=== PATIENT | male | born 1950 | race Caucasian/White ===

== ENCOUNTER 2019-07-12 06:19 | Emergency (ER) | payer MEDICARE ==
[~2019-07-12] VITALS: Ht 180.3 cm; Wt 145.1 kg
[2019-07-12 06:53] VITALS: BP 173/98
[2019-07-12] MEDS ORDERED: MORPHINE SULFATE 4 MG/ML VIAL. IV ONE (07:00)
--- NOTE | 2019-07-12 07:02 | PHYS DOC ---
Past Medical History Past Medical History: Arthritis, High Cholesterol, Hypertension Past Surgical History: No Surgical History Alcohol Use: Occasionally Drug Use: None Adult General Chief Complaint Chief Complaint: LOWER EXT PAIN HPI HPI Patient is a 69 year old male with history of hypertension, dyspepsia, arthritis, resident of assisted living home and wheelchair-bound because of chronic knee pain who presents via EMS with complaint of back pain. Patient complaining of constant low back pain with radiation to the posterior of left high as a constant pain that getting worse with movement for the last 2 weeks and rated his pain 10 over 10. Patient denies focal neuro deficit, urine and bowel incontinence, fever and chills, abdominal pain, chest pain and shortness of breath. Patient states he took Aleve and Tylenol and leftover of tramadol without improvement of his pain. Patient states he has had episodes of sciatica pain for the last 10 years but never had pain as bad as this time. Patient did not seek medical attention for the last 2 weeks. Review of Systems Review of Systems Constitutional: Denies fever or chills [] Eyes: Denies change in visual acuity, redness, or eye pain [] HENT: Denies nasal congestion or sore throat [] Respiratory: Denies cough or shortness of breath [] Cardiovascular: No additional information not addressed in HPI [] GI: Denies abdominal pain, nausea, vomiting, bloody stools or diarrhea [] : Denies dysuria or hematuria [] Musculoskeletal: Reports back pain and joint pain [] Integument: Denies rash or skin lesions [] Neurologic: Denies headache, focal weakness or sensory changes [] Endocrine: Denies polyuria or polydipsia [] All other systems were reviewed and found to be within normal limits, except as documented in this note. Current Medications Current Medications Current Medications Medications (Trade) Dose Ordered Sig/Veronica Start Time Stop Time Status Last Admin Dose Admin Acetaminophen/ Hydrocodone Bitart (Lortab 5/325) 1 tab 1X ONCE 07/12/19 09:00 07/12/19 09:01 DC 07/12/19 09:16 1 TAB Cyclobenzaprine HCl (Flexeril) 10 mg 1X ONCE 07/12/19 09:00 07/12/19 09:01 DC 07/12/19 09:16 10 MG Ketorolac Tromethamine (Toradol 30mg Vial) 30 mg 1X ONCE 07/12/19 07:45 07/12/19 07:46 DC 07/12/19 07:56 30 MG Methylprednisolone Sodium Succinate (SOLU-Medrol 125MG VIAL) 125 mg 1X ONCE 07/12/19 07:45 07/12/19 07:46 DC 07/12/19 07:55 125 MG Morphine Sulfate (Morphine Sulfate) 4 mg 1X ONCE 07/12/19 07:00 07/12/19 07:01 DC 07/12/19 06:49 4 MG Orphenadrine Citrate (Norflex) 60 mg 1X ONCE 07/12/19 07:45 07/12/19 07:46 DC 07/12/19 07:56 60 MG Allergies Allergies Allergies Coded Allergies Type Severity Reaction Last Updated Verified No Known Drug Allergies 07/12/19 No Physical Exam Physical Exam Constitutional: Well developed, well nourished, mild distress, non-toxic appearance. [] HENT: Normocephalic, atraumatic. Eyes: PERRLA, EOMI, conjunctiva normal, no discharge. [] Neck: Normal range of motion, no tenderness, supple, no stridor. [] Cardiovascular:Heart rate regular rhythm, no murmur [] Lungs & Thorax: Bilateral breath sounds clear to auscultation [] Abdomen: Bowel sounds normal, soft, no tenderness, no masses, no pulsatile masses. [] Skin: Warm, dry, no erythema, no rash. [] Back: No midline tenderness, no CVA tenderness. [] Extremities: No tenderness, no cyanosis, no clubbing, ROM intact, no edema. [] Neurologic: Alert and oriented X 3, no focal deficits noted. [] Psychologic: Affect anxious, judgement normal, mood normal. [] Current Patient Data Vital Signs Vital Signs Date Time Temp Pulse Resp B/P (MAP) Pulse Ox O2 Delivery O2 Flow Rate FiO2 07/12/19 06:49 16 97 Room Air 07/12/19 06:20 97.9 113 188/105 (132) 97.9 Lab Values Laboratory Tests Test 07/12/19 06:50 07/12/19 08:15 White Blood Count 10.1 x10^3/uL (4.0-11.0) Red Blood Count 4.92 x10^6/uL (4.30-5.70) Hemoglobin 16.2 g/dL (13.0-17.5) Hematocrit 47.4 % (39.0-53.0) Mean Corpuscular Volume 96 fL (79-100) Mean Corpuscular Hemoglobin 33 pg (25-35) Mean Corpuscular Hemoglobin Concent 34 g/dL (31-37) Red Cell Distribution Width 13.4 % (11.5-14.5) Platelet Count 270 x10^3/uL (140-400) Neutrophils (%) (Auto) 79 % (31-73) H Lymphocytes (%) (Auto) 14 % (24-48) L Monocytes (%) (Auto) 6 % (0-9) Eosinophils (%) (Auto) 2 % (0-3) Basophils (%) (Auto) 1 % (0-3) Neutrophils # (Auto) 7.9 x10^3/uL (1.8-7.7) H Lymphocytes # (Auto) 1.4 x10^3/uL (1.0-4.8) Monocytes # (Auto) 0.6 x10^3/uL (0.0-1.1) Eosinophils # (Auto) 0.2 x10^3/uL (0.0-0.7) Basophils # (Auto) 0.1 x10^3/uL (0.0-0.2) Sodium Level 138 mmol/L (136-145) Potassium Level 4.0 mmol/L (3.5-5.1) Chloride Level 103 mmol/L (98-107) Carbon Dioxide Level 25 mmol/L (21-32) Anion Gap 10 (6-14) Blood Urea Nitrogen 24 mg/dL (8-26) Creatinine 0.7 mg/dL (0.7-1.3) Estimated GFR (Cockcroft-Gault) 111.5 BUN/Creatinine Ratio 34 (6-20) H Glucose Level 115 mg/dL (70-99) H Calcium Level 8.8 mg/dL (8.5-10.1) Total Bilirubin 0.7 mg/dL (0.2-1.0) Aspartate Amino Transferase (AST) 38 U/L (15-37) H Alanine Aminotransferase (ALT) 48 U/L (16-63) Alkaline Phosphatase 48 U/L (46-116) Creatine Kinase 167 U/L (39-308) Total Protein 7.6 g/dL (6.4-8.2) Albumin 3.9 g/dL (3.4-5.0) Albumin/Globulin Ratio 1.1 (1.0-1.7) Urine Collection Type Void Urine Color Olesya Urine Clarity Clear Urine pH 5.0 Urine Specific Byron >=1.030 Urine Protein Negative mg/dL (NEG-TRACE) Urine Glucose (UA) 100 mg/dL (NEG) Urine Ketones (Stick) 15 mg/dL (NEG) Urine Blood Small (NEG) Urine Nitrite Positive (NEG) Urine Bilirubin Small (NEG) Urine Urobilinogen Dipstick 0.2 mg/dL (0.2 mg/dL) Urine Leukocyte Esterase Small (NEG) Urine RBC 1-2 /HPF (0-2) Urine WBC 5-10 /HPF (0-4) Urine Squamous Epithelial Cells Few /LPF Urine Bacteria Many /HPF (0-FEW) Urine Opiates Screen Pos (NEG) Urine Methadone Screen Neg (NEG) Urine Barbiturates Neg (NEG) Urine Phencyclidine Screen Neg (NEG) Urine Amphetamine/Methamphetamine Neg (NEG) Urine Benzodiazepines Screen Neg (NEG) Urine Cocaine Screen Neg (NEG) Urine Cannabinoids Screen Neg (NEG) Urine Ethyl Alcohol Neg (NEG) Laboratory Tests 07/12/19 06:50 Laboratory Tests 07/12/19 06:50 EKG EKG [] Radiology/Procedures Radiology/Procedures [facility] [address] [place] [address] IMAGING REPORT Signed PATIENT: MIGDALIA MCLAIN ACCOUNT: [id number] : 1950 LOCATION: ER AGE: 69 SEX: M EXAM STATUS: REG ER ORD. PHYSICIAN: CHAZ RHOADES MD REASON: low back pain PROCEDURE: CT LUMBAR SPINE WO CONTRAST CT LUMBAR SPINE WO CONTRAST Indication: Low back pain Technique: Noncontrast CT imaging was performed of the lumbar spine, multiplanar reconstruction images submitted. One or more of the following individualized dose reduction techniques were utilized for this examination: 1. Automated exposure control 2. Adjustment of the mA and/or kV according to patient size 3. Use of iterative reconstruction technique. Comparison: None Findings: There is some motion degradation. No acute lumbar spine fracture is identified. Lumbar vertebral body stature is overall maintained. There is grade 1 anterior spondylolisthesis at L4-5 on the order of 1 cm due to bilateral L4 spondylolysis. There is very mild grade 1 anterior spondylolisthesis at L5-S1. There is multilevel lumbar facet degenerative change. Accurate evaluation for spinal stenosis is limited on this nonmyelographic exam and due to motion. There is degree of narrowing of the far left lateral recess at L4-5 from posteriorly by facet hypertrophic change. There is degree of partial fusion of the right sacroiliac joint. There is scattered atherosclerotic calcification abdominal aorta and iliac arteries. There is severe narrowing of the L4-5 neural foramina bilaterally, also severe narrowing on the left at L5-S1. There is also lesser degree of neural foramina compromise bilaterally at L1-2 and L2-3. There is very mild lumbar levoscoliosis centered near the thoracolumbar junction. There is multilevel thoracolumbar spondylosis, also degree of thoracic ankylosis. There is fairly advanced L4-5 and L5-S1 degenerative disc disease, to lesser degree at L3-4. IMPRESSION: 1. No acute lumbar spine fracture is identified. 2. There is multilevel lumbar neural foramina compromise greatest bilaterally at L4-5 and on the left at L5-S1. 3. There is grade 1 anterior spondylolisthesis at L4-5 due to bilateral L4 spondylolysis. There is very mild grade 1 anterior spondylolisthesis at L5-S1 at which there is facet degenerative change. There is multilevel lumbar facet degenerative change. 4. There is degree of narrowing of the far left lateral recess at L4-5 from posteriorly by facet hypertrophic change. 5. There is lumbar degenerative disc disease greatest at L4-5 and L5-S1. Electronically signed by: Jesus Michaels MD (07/12/2019 7:42 AM) [facility] DICTATED and SIGNED BY: JESUS MICHAELS MD DATE: 07/12/19 0742 Course & Med Decision Making Course & Med Decision Making Pertinent Labs and Imaging studies reviewed. (See chart for details) Evaluation of patient in ER showed 69-year-old male patient complaining of left lower back and sciatica pain for 2 weeks that getting worse for the last 5 days without significant medical attention. Patient asking for pain medication from the movement of his arrival to ER. Treated with morphine and stated his pain did not change. Patient treated with Toradol and Solu-Medrol and Norflex with imp rovement of his pain to 3/10. Patient had unremarkable labs except for mild UTI. CT showed DDD acute fracture or bulging disc. Patient was informed about his discharge but he stated that his pain increased at time of discharge. Patient treated with oral Flexeril and Hughson and was advised to follow up with his PCP pain management of chronic back pain exacerbation. Dragon Disclaimer Dragon Disclaimer This electronic medical record was generated, in whole or in part, using a voice recognition dictation system. Departure Departure Impression: Primary Impression: Acute sciatica Additional Impressions: Urinary tract infection Morbid obesity with BMI of 40.0-44.9, adult Degenerative joint disease (DJD) of lumbar spine Disposition: 01 HOME, SELF-CARE ([email or web address] living [email or web address]@ [email or web address]) Condition: IMPROVED Patient Instructions: Arthritis, Degenerative-Brief, Sciatica, Urinary Tract Infection Additional Instructions: Apply ice on your back Follow-up with your primary care physician in 1-2 days for further evaluation and referral to back specialist Return to ER if not getting better Thank you for visiting . We appreciate you trusting us with your care. If any additional problems come up don't hesitate to return to visit us. Please follow up with your primary care provider so they can plan additional care if needed and know about the problem that you had. If symptoms worsen come back to the Emergency Department. Any concerning symptoms that start such as chest pain, shortness of air, weakness or numbness on one side of the body, running high fevers or any other concerning symptoms return to the ER. Scripts Hydrocodone/Apap 5-325 (NORCO 5-325 TABLET) 1 Each Tablet 1 TAB PO PRN Q6HRS PRN for PAIN, #14 TAB 0 Refills Prov: CHAZ RHOADES MD 07/12/19 Methylprednisolone (MEDROL) 4 Mg Tab.ds.pk 1 PKG PO UD for inflammation, #1 PKG Prov: CHAZ RHOADES MD 07/12/19 Cyclobenzaprine Hcl (CYCLOBENZAPRINE HCL) 10 Mg Tablet 1 TAB PO TID, #21 TAB Prov: CHAZ RHOADES MD 07/12/19 Ciprofloxacin Hcl (CIPRO) 250 Mg Tablet 1 TAB PO BID for infection, #14 TAB Prov: CHAZ RHOADES MD 07/12/19 Problem Qualifiers Additional Impressions: Urinary tract infection Urinary tract infection type: site unspecified Hematuria presence: without hematuria Qualified Codes: N39.0 - Urinary tract infection, site not specified 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
[2019-07-12 07:07] LABS: BASO # 0.1 x10^3/uL (0.0-0.2); BASO % 1 % (0-3); EOS # 0.2 x10^3/uL (0.0-0.7); EOS % 2 % (0-3); HEMATOCRIT 47.4 % (39.0-53.0); HEMOGLOBIN 16.2 g/dL (13.0-17.5); LYMPH # 1.4 x10^3/uL (1.0-4.8); LYMPH % 14 % (24-48); MEAN CORPUSCULAR HEMOGLOBIN 33 pg (25-35); MEAN CORPUSCULAR HGB CONC 34 g/dL (31-37); MEAN CORPUSCULAR VOLUME 96 fL (79-100); MONO # 0.6 x10^3/uL (0.0-1.1); MONO % 6 % (0-9); NEUT # 7.9 x10^3/uL (1.8-7.7); NEUT % 79 % (31-73); PLATELET COUNT 270 x10^3/uL (140-400); RED BLOOD COUNT 4.92 x10^6/uL (4.30-5.70); RED CELL DISTRIBUTION WIDTH 13.4 % (11.5-14.5); WHITE BLOOD COUNT 10.1 x10^3/uL (4.0-11.0)
[2019-07-12 07:19] LABS: CALCIUM 8.8 mg/dL (8.5-10.1); CREATININE 0.7 mg/dL (0.7-1.3); GFR 111.5
[2019-07-12 07:26] LABS: ALBUMIN 3.9 g/dL (3.4-5.0); ALBUMIN/GLOBULIN RATIO 1.1 (1.0-1.7); TOTAL BILIRUBIN 0.7 mg/dL (0.2-1.0); TOTAL PROTEIN 7.6 g/dL (6.4-8.2)
[2019-07-12] MEDS ORDERED: KETOROLAC 30 MG/ML VIAL. IVP ONE (07:45)
[2019-07-12] MEDS ORDERED: ORPHENADRINE CITRATE 60 MG/2 ML VIAL. IV ONE (07:45)
[2019-07-12] MEDS ORDERED: methylPREDNISolone SOD SUCC PF 125 MG/2 ML VIAL. IV ONE (07:45)
--- NOTE | 2019-07-12 07:45 | RAD ---
CT LUMBAR SPINE WO CONTRAST Indication: Low back pain Technique: Noncontrast CT imaging was performed of the lumbar spine, multiplanar reconstruction images submitted. One or more of the following individualized dose reduction techniques were utilized for this examination: 1. Automated exposure control 2. Adjustment of the mA and/or kV according to patient size 3. Use of iterative reconstruction technique. Comparison: None Findings: There is some motion degradation. No acute lumbar spine fracture is identified. Lumbar vertebral body stature is overall maintained. There is grade 1 anterior spondylolisthesis at L4-5 on the order of 1 cm due to bilateral L4 spondylolysis. There is very mild grade 1 anterior spondylolisthesis at L5-S1. There is multilevel lumbar facet degenerative change. Accurate evaluation for spinal stenosis is limited on this nonmyelographic exam and due to motion. There is degree of narrowing of the far left lateral recess at L4-5 from posteriorly by facet hypertrophic change. There is degree of partial fusion of the right sacroiliac joint. There is scattered atherosclerotic calcification abdominal aorta and iliac arteries. There is severe narrowing of the L4-5 neural foramina bilaterally, also severe narrowing on the left at L5-S1. There is also lesser degree of neural foramina compromise bilaterally at L1-2 and L2-3. There is very mild lumbar levoscoliosis centered near the thoracolumbar junction. There is multilevel thoracolumbar spondylosis, also degree of thoracic ankylosis. There is fairly advanced L4-5 and L5-S1 degenerative disc disease, to lesser degree at L3-4. IMPRESSION: 1. No acute lumbar spine fracture is identified. 2. There is multilevel lumbar neural foramina compromise greatest bilaterally at L4-5 and on the left at L5-S1. 3. There is grade 1 anterior spondylolisthesis at L4-5 due to bilateral L4 spondylolysis. There is very mild grade 1 anterior spondylolisthesis at L5-S1 at which there is facet degenerative change. There is multilevel lumbar facet degenerative change. 4. There is degree of narrowing of the far left lateral recess at L4-5 from posteriorly by facet hypertrophic change. 5. There is lumbar degenerative disc disease greatest at L4-5 and L5-S1. Electronically signed by: Bijan Prasad MD (07/12/2019 7:42 AM) [facility]
[2019-07-12 08:32] LABS: BILIRUBIN,URINE SMALL (NEG); CLARITY,URINE CLEAR; COLOR,URINE AMBER; NITRITE,URINE POSITIVE (NEG); PROTEIN,URINE NEGATIVE (NEG-TRACE); UROBILINOGEN,URINE 0.2 mg/dL (0.2 mg/dL)
[2019-07-12 08:45] LABS: BARBITURATES NEG (NEG); BENZODIAZEPINES NEG (NEG); CANNABINOIDS NEG (NEG); COCAINE NEG (NEG); METHADONE NEG (NEG); OPIATES POS (NEG); PHENCYCLIDINE NEG (NEG)
[2019-07-12 08:46] LABS: AMPHETAMINE/METHAMPHETAMINE NEG (NEG)
[2019-07-12 08:50] LABS: BACTERIA,URINE MANY /HPF (0-FEW); SQUAMOUS EPITHELIAL CELL,UR FEW /LPF
[2019-07-12] MEDS ORDERED: HYDROcodone/APAP 5/325MG 1 TAB TABLET PO ONE (09:00)
[2019-07-12] MEDS ORDERED: CYCL10TA2 PO (09:00)
[2019-07-12] MEDS ORDERED: CIPR250T30 PO (09:00)
[2019-07-12] MEDS ORDERED: METH4TAB2 PO (09:00)
[2019-07-12] MEDS ORDERED: CYCLOBENZAPRINE 10 MG TABLET. PO ONE (09:00)
[2019-07-12] MEDS ORDERED: HYDR-3164 PO (09:00)
[2019-07-16] MEDS ORDERED: MAGN400O7 PO (10:07)
[2019-07-16] MEDS ORDERED: MAG30ORA2 PO (10:07)
[2019-07-16] MEDS ORDERED: POLY17PO28 PO (10:07)
[2019-07-16] MEDS ORDERED: PANT40TA77 PO (10:07)
[2019-07-16] MEDS ORDERED: DOCU-153 PO (10:07)
[2019-07-16] MEDS ORDERED: CLON0.1T12 PO (10:07)
[2019-07-16] MEDS ORDERED: HYDR4TAB45 PO (10:07)
[2019-07-16] MEDS ORDERED: NYST15CR TP (10:07)
[2019-07-16] MEDS ORDERED: OXYC15TA61 PO (10:07)
== END 2019-07-12 09:19 | disposition home or self-care (01) ==
LOC: ER 06:19
DX: M54.42 Lumbago with sciatica, left side (principal); N39.0 Urinary tract infection, site not specified; E66.01 Morbid (severe) obesity due to excess calories; M51.36 Other intervertebral disc degeneration, lumbar region; M47.896 Other spondylosis, lumbar region; M19.90 Unspecified osteoarthritis, unspecified site; E78.00 Pure hypercholesterolemia, unspecified; I10 Essential (primary) hypertension; Z68.41 Body mass index [BMI] 40.0-44.9, adult
CPT/HCPCS: 36415; 72131; 80053; 80307; 81001; 82550; 85025; 87086; 96374; 96375; 99285; J1885; J2270; J2360; J2930

== ENCOUNTER 2019-07-13 14:19 | Inpatient (IN) | payer MEDICARE ==
[~2019-07-13] VITALS: Ht 180.3 cm; Wt 147.9 kg
[~2019-07-13 14:19] MED LIST: CIPR250T30 PO; CYCL10TA2 PO; HYDR-3164 PO; METH4TAB2 PO
[2019-07-13] MEDS ORDERED: fentaNYL PF VIAL 100 MCG/2 ML VIAL IVP ONE (15:00)
[2019-07-13] MEDS ORDERED: KETOROLAC 30 MG/ML VIAL. IVP ONE (15:45)
[2019-07-13] MEDS ORDERED: methylPREDNISolone SOD SUCC PF 125 MG/2 ML VIAL. IV ONE (15:45)
[2019-07-13] MEDS ORDERED: ORPHENADRINE CITRATE 60 MG/2 ML VIAL. IV ONE (15:45)
--- NOTE | 2019-07-13 16:42 | PHYS DOC ---
Past Medical History Past Medical History: Arthritis, High Cholesterol, Hypertension (CHAZ RHOADES MD) Past Surgical History: No Surgical History (CHAZ RHOADES MD) Alcohol Use: Occasionally Drug Use: None (CHAZ RHOADES MD) Adult General Chief Complaint Chief Complaint: PAIN CONTROL HPI HPI Patient is a 69 year old male with history of hypertension, dyspepsia, arthritis, resident of assisted living home and wheelchair-bound because of chronic knee pain who presents via EMS with complaint of back pain. Patient complaining of constant low back pain with radiation to the posterior of left high as a constant pain that getting worse with movement for the last 2 weeks and rated his pain 10 over 10. Patient denies focal neuro deficit, urine and bowel incontinence, fever and chills, abdominal pain, chest pain and shortness of breath. Patient states he took Aleve and Tylenol and leftover of tramadol without improvement of his pain. Patient states he has had episodes of sciatica pain for the last 10 years but never had pain as bad as this time. Patient was seen in this emergency room yesterday with the same complaint and had unremarkable labs without acute finding in CT of lumbar and discharged home with prescription of Flexeril and Medrol Dosepak and hydrocodone but he stated the pain medication did not help rated his pain 10 over 10. (CHAZ RHOADES MD) Review of Systems Review of Systems Constitutional: Denies fever or chills [] Eyes: Denies change in visual acuity, redness, or eye pain [] HENT: Denies nasal congestion or sore throat [] Respiratory: Denies cough or shortness of breath [] Cardiovascular: No additional information not addressed in HPI [] GI: Denies abdominal pain, nausea, vomiting, bloody stools or diarrhea [] : Denies dysuria or hematuria [] Musculoskeletal: Reports back pain and joint pain Integument: Denies rash or skin lesions [] Neurologic: Denies headache, focal weakness or sensory changes [] Endocrine: Denies polyuria or polydipsia [] All other systems were reviewed and found to be within normal limits, except as documented in this note. (CHAZ RHOADES MD) Current Medications Current Medications Current Medications Medications (Trade) Dose Ordered Sig/Veronica Start Time Stop Time Status Last Admin Dose Admin Fentanyl Citrate (Fentanyl 2ml Vial) 50 mcg 1X ONCE 07/13/19 15:00 07/13/19 15:03 DC 07/13/19 15:07 50 MCG Hydromorphone HCl (Dilaudid) 1 mg 1X ONCE 07/13/19 17:30 07/13/19 17:31 DC 07/13/19 17:27 1 MG Ketorolac Tromethamine (Toradol 30mg Vial) 30 mg 1X ONCE 07/13/19 15:45 07/13/19 15:46 DC 07/13/19 16:25 30 MG Methylprednisolone Sodium Succinate (SOLU-Medrol 125MG VIAL) 125 mg 1X ONCE 07/13/19 15:45 07/13/19 15:46 DC 07/13/19 16:26 125 MG Orphenadrine Citrate (Norflex) 60 mg 1X ONCE 07/13/19 15:45 07/13/19 15:46 DC 07/13/19 16:26 60 MG (KENA PROCTOR Jr. DO) Allergies Allergies Allergies Coded Allergies Type Severity Reaction Last Updated Verified No Known Drug Allergies 07/12/19 No (KENA PROCTOR Jr. DO) Physical Exam Physical Exam Constitutional: Well developed, well nourished, mild distress, non-toxic appearance. [] HENT: Normocephalic, atraumatic. Eyes: PERRLA, EOMI, conjunctiva normal, no discharge. [] Neck: Normal range of motion, no tenderness, supple, no stridor. [] Cardiovascular:Heart rate regular rhythm, no murmur [] Lungs & Thorax: Bilateral breath sounds clear to auscultation [] Abdomen: Bowel sounds normal, soft, no tenderness, no masses, no pulsatile masses. [] Skin: Warm, dry, no erythema, no rash. [] Back: No midline tenderness, no CVA tenderness. [] Extremities: No tenderness, no cyanosis, no clubbing, ROM intact, no edema. [] Neurologic: Alert and oriented X 3, no focal deficits noted. [] Psychologic: Affect anxious, judgement normal, mood normal. [] (CHAZ RHOADES MD) Current Patient Data Vital Signs Vital Signs Date Time Temp Pulse Resp B/P (MAP) Pulse Ox O2 Delivery O2 Flow Rate FiO2 07/13/19 20:00 100 20 95 07/13/19 17:27 Room Air 07/13/19 14:19 97.6 160/73 (102) 97.6 (KENA PROCTOR Jr. DO) Lab Values Laboratory Tests Test 07/13/19 14:53 White Blood Count 9.2 x10^3/uL (4.0-11.0) Red Blood Count 4.83 x10^6/uL (4.30-5.70) Hemoglobin 15.8 g/dL (13.0-17.5) Hematocrit 46.4 % (39.0-53.0) Mean Corpuscular Volume 96 fL (79-100) Mean Corpuscular Hemoglobin 33 pg (25-35) Mean Corpuscular Hemoglobin Concent 34 g/dL (31-37) Red Cell Distribution Width 13.5 % (11.5-14.5) Platelet Count 271 x10^3/uL (140-400) Neutrophils (%) (Auto) 79 % (31-73) H Lymphocytes (%) (Auto) 13 % (24-48) L Monocytes (%) (Auto) 8 % (0-9) Eosinophils (%) (Auto) 0 % (0-3) Basophils (%) (Auto) 0 % (0-3) Neutrophils # (Auto) 7.3 x10^3/uL (1.8-7.7) Lymphocytes # (Auto) 1.2 x10^3/uL (1.0-4.8) Monocytes # (Auto) 0.7 x10^3/uL (0.0-1.1) Eosinophils # (Auto) 0.0 x10^3/uL (0.0-0.7) Basophils # (Auto) 0.0 x10^3/uL (0.0-0.2) Sodium Level 141 mmol/L (136-145) Potassium Level 4.2 mmol/L (3.5-5.1) Chloride Level 104 mmol/L (98-107) Carbon Dioxide Level 29 mmol/L (21-32) Anion Gap 8 (6-14) Blood Urea Nitrogen 29 mg/dL (8-26) H Creatinine 0.9 mg/dL (0.7-1.3) Estimated GFR (Cockcroft-Gault) 83.4 Glucose Level 92 mg/dL (70-99) Calcium Level 8.9 mg/dL (8.5-10.1) Laboratory Tests 07/13/19 14:53 Laboratory Tests 07/13/19 14:53 (KENA PROCTOR Jr. DO) Lab Values Laboratory Tests Test 07/13/19 14:53 White Blood Count 9.2 x10^3/uL (4.0-11.0) Red Blood Count 4.83 x10^6/uL (4.30-5.70) Hemoglobin 15.8 g/dL (13.0-17.5) Hematocrit 46.4 % (39.0-53.0) Mean Corpuscular Volume 96 fL (79-100) Mean Corpuscular Hemoglobin 33 pg (25-35) Mean Corpuscular Hemoglobin Concent 34 g/dL (31-37) Red Cell Distribution Width 13.5 % (11.5-14.5) Platelet Count 271 x10^3/uL (140-400) Neutrophils (%) (Auto) 79 % (31-73) H Lymphocytes (%) (Auto) 13 % (24-48) L Monocytes (%) (Auto) 8 % (0-9) Eosinophils (%) (Auto) 0 % (0-3) Basophils (%) (Auto) 0 % (0-3) Neutrophils # (Auto) 7.3 x10^3/uL (1.8-7.7) Lymphocytes # (Auto) 1.2 x10^3/uL (1.0-4.8) Monocytes # (Auto) 0.7 x10^3/uL (0.0-1.1) Eosinophils # (Auto) 0.0 x10^3/uL (0.0-0.7) Basophils # (Auto) 0.0 x10^3/uL (0.0-0.2) Sodium Level 141 mmol/L (136-145) Potassium Level 4.2 mmol/L (3.5-5.1) Chloride Level 104 mmol/L (98-107) Carbon Dioxide Level 29 mmol/L (21-32) Anion Gap 8 (6-14) Blood Urea Nitrogen 29 mg/dL (8-26) H Creatinine 0.9 mg/dL (0.7-1.3) Estimated GFR (Cockcroft-Gault) 83.4 Glucose Level 92 mg/dL (70-99) Calcium Level 8.9 mg/dL (8.5-10.1) Laboratory Tests 07/13/19 14:53 Laboratory Tests 07/13/19 14:53 (CHAZ RHOADES MD) EKG EKG [] (CHAZ RHOADES MD) Radiology/Procedures Radiology/Procedures [] (CHZA RHOADES MD) Impressions: PROCEDURE: LUMBAR SPINE WO CONTRAST MRI lumbar spine without contrast HISTORY: Low back pain Multiple sagittal imaging of the lumbar spine performed without contrast There is bilateral spondylolysis and grade 2 anterior thesis of L4 on L5. This results in marked narrowing of the neuroforamen bilaterally. Hypertrophy of facets and ligamentum flavum and mild diffuse circumferential disc bulges and congenital short pedicles results in mild central stenosis. There is normal marrow signal. The conus medullaris tapers by suspected anatomic level. 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 Electronically signed by: Calvin Elliott III, MD (07/13/2019 7:11 PM) [facility] (KENA PROCTOR Jr., DO) Course & Med Decision Making Course & Med Decision Making Pertinent Imaging studies are pending. Evaluation of patient in ER showed 69-year-old male patient presented for the second time since yesterday for low back pain with radiation to the left lower extremity. MRI of lumbar spine is pending. Patient treated with several doses of pain medication. Sign out given to Dr. Proctor at 1800 for further evaluation and final disposition. Discussed current findings and plan with patient and family, who acknowledge understanding and agreement. (CHAZ RHOADES MD) Dragon Disclaimer Dragon Disclaimer This electronic medical record was generated, in whole or in part, using a voice recognition dictation system. (CHAZ RHOADES MD) Departure Departure Impression: Primary Impression: Sciatica Additional Impression: Intractable low back pain Disposition: 09 ADMITTED INPATIENT Admitting Physician: KARINE (Dr. Troy) (KENA PROCTOR Jr. DO) Condition: IMPROVED Referrals: RAYMUNDO RODRÍGUEZ MD (PCP) Problem Qualifiers Primary Impression: Sciatica Laterality: unspecified laterality Qualified Codes: M54.30 - Sciatica, unspecified side CHAZ RHOADES MD Jul 13, 2019 16:42 KENA PROCTOR Jr. DO Jul 13, 2019 20:17
[2019-07-13 16:49] LABS: BASO % 0 % (0-3); EOS % 0 % (0-3); HEMATOCRIT 46.4 % (39.0-53.0); HEMOGLOBIN 15.8 g/dL (13.0-17.5); LYMPH # 1.2 x10^3/uL (1.0-4.8); LYMPH % 13 % (24-48); MEAN CORPUSCULAR HEMOGLOBIN 33 pg (25-35); MEAN CORPUSCULAR HGB CONC 34 g/dL (31-37); MEAN CORPUSCULAR VOLUME 96 fL (79-100); MONO # 0.7 x10^3/uL (0.0-1.1); MONO % 8 % (0-9); NEUT # 7.3 x10^3/uL (1.8-7.7); NEUT % 79 % (31-73); PLATELET COUNT 271 x10^3/uL (140-400); RED BLOOD COUNT 4.83 x10^6/uL (4.30-5.70); RED CELL DISTRIBUTION WIDTH 13.5 % (11.5-14.5); WHITE BLOOD COUNT 9.2 x10^3/uL (4.0-11.0)
[2019-07-13 17:00] LABS: CALCIUM 8.9 mg/dL (8.5-10.1); CREATININE 0.9 mg/dL (0.7-1.3); GFR 83.4; POTASSIUM 4.2 mmol/L (3.5-5.1)
[2019-07-13] MEDS ORDERED: HYDROmorphone 2 MG/ML VIAL IV ONE (17:30)
--- NOTE | 2019-07-13 19:14 | RAD ---
MRI lumbar spine without contrast HISTORY: Low back pain Multiple sagittal imaging of the lumbar spine performed without contrast There is bilateral spondylolysis and grade 2 anterior thesis of L4 on L5. This results in marked narrowing of the neuroforamen bilaterally. Hypertrophy of facets and ligamentum flavum and mild diffuse circumferential disc bulges and congenital short pedicles results in mild central stenosis. There is normal marrow signal. The conus medullaris tapers by suspected anatomic level. 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 Electronically signed by: Calvin Elliott III, MD (07/13/2019 7:11 PM) [facility]
[2019-07-13] MEDS ORDERED: ONDANSETRON PF 4 MG/2 ML VIAL. IV PRN (20:30)
[2019-07-13 21:55] VITALS: BP 152/83
[2019-07-13] MEDS: HYDROmorphone 2 MG/ML VIAL IV PRN (22:11)
[2019-07-13 23:00] VITALS: BP 152/83
[2019-07-14] MEDS ORDERED: METO25TA4 PO (00:23)
[2019-07-14] MEDS ORDERED: ACET500T68 PO (00:23)
[2019-07-14] MEDS ORDERED: LIDO1ADH44 TP (00:23)
[2019-07-14] MEDS ORDERED: ATOR20TA58 PO (00:23)
[2019-07-14] MEDS ORDERED: NAPR220C4 PO (00:23)
[2019-07-14] MEDS: HYDROmorphone 2 MG/ML VIAL IV PRN ×8 (01:50→22:48)
[2019-07-14 03:00] VITALS: BP 141/78
[2019-07-14 04:24] LABS: BASO % 0 % (0-3); EOS % 0 % (0-3); HEMATOCRIT 46.4 % (39.0-53.0); HEMOGLOBIN 15.5 g/dL (13.0-17.5); LYMPH # 0.7 x10^3/uL (1.0-4.8); LYMPH % 9 % (24-48); MEAN CORPUSCULAR HEMOGLOBIN 32 pg (25-35); MEAN CORPUSCULAR HGB CONC 33 g/dL (31-37); MEAN CORPUSCULAR VOLUME 97 fL (79-100); MONO # 0.2 x10^3/uL (0.0-1.1); MONO % 3 % (0-9); NEUT # 7.5 x10^3/uL (1.8-7.7); NEUT % 89 % (31-73); PLATELET COUNT 262 x10^3/uL (140-400); RED CELL DISTRIBUTION WIDTH 13.2 % (11.5-14.5); WHITE BLOOD COUNT 8.5 x10^3/uL (4.0-11.0)
[2019-07-14 04:40] LABS: CREATININE 0.7 mg/dL (0.7-1.3); GFR 111.5; POTASSIUM 4.5 mmol/L (3.5-5.1)
[2019-07-14 07:15] VITALS: BP 146/79
[2019-07-14 10:57] VITALS: BP 143/83
[2019-07-14] MEDS: NYSTATIN 100,000 UNIT/GM TOPICAL CREAM 15GM TUBE. TP SCH ×2 (10:59→21:34)
--- NOTE | 2019-07-14 11:34 | NUR ---
SW following. Discussed with RN, pt is an assisted living resident at [facility] (ph: [phone], fax: [phone]). Pt normally uses a cane or a walker at home. Currently on bed rest. PT/OT has been ordered. SW will continue to follow.
--- NOTE | 2019-07-14 11:36 | PDOC1 ---
History and Physical Date of Admission Date of Admission DATE: 07/14/19 TIME: 11:32 Identification/Chief Complaint Chief Complaint SEEN IN ER WITH INTRACTABLE PAIN presented via EMS with complaint of back pain. Patient complaining of constant low back pain with radiation to the posterior of left high as a constant pain that getting worse with movement for the last 2 weeks and rated his pain 10 over 10. denies focal neuro deficit, urine and bowel incontinence, fever and chills, abdominal pain, chest pain and shortness of breath. Patient states he took Aleve and Tylenol and leftover of tramadol without improvement of his pain. ///states he has had episodes of sciatica pain for the last 10 years but never had pain as bad as this episode MRI suggested severe lumar stenosis Past Medical History Past Medical History Past Medical History Past Medical History Past Medical History: Arthritis, High Cholesterol, Hypertension Past Surgical History: No Surgical History Alcohol Use: Occasionally Drug Use: None fhx obesity Family History Family History: High Cholestrol, Hypertension Social History Smoke: No ALCOHOL: none Drugs: None Current Problem List Problem List Problems Medical Problems: (1) Intractable low back pain Status: Acute (2) Sciatica Status: Acute Current Medications Current Medications Current Medications Fentanyl Citrate (Fentanyl 2ml Vial) 50 mcg 1X ONCE IVP Last administered on 07/13/19at 15:07; Start 07/13/19 at 15:00; Stop 07/13/19 at 15:03; Status DC Orphenadrine Citrate (Norflex) 60 mg 1X ONCE IV Last administered on 07/13/19at 16:26; Start 07/13/19 at 15:45; Stop 07/13/19 at 15:46; Status DC Ketorolac Tromethamine (Toradol 30mg Vial) 30 mg 1X ONCE IVP Last administered on 07/13/19at 16:25; Start 07/13/19 at 15:45; Stop 07/13/19 at 15:46; Status DC Methylprednisolone Sodium Succinate (SOLU-Medrol 125MG VIAL) 125 mg 1X ONCE IV Last administered on 07/13/19at 16:26; Start 07/13/19 at 15:45; Stop 07/13/19 at 15:46; Status DC Hydromorphone HCl (Dilaudid) 1 mg 1X ONCE IV Last administered on 07/13/19at 17:27; Start 07/13/19 at 17:30; Stop 07/13/19 at 17:31; Status DC Ondansetron HCl (Zofran) 4 mg PRN Q8HRS PRN IV NAUSEA/VOMITING; Start 07/13/19 at 20:30; Stop 07/14/19 at 20:29 Hydromorphone HCl (Dilaudid) 0.5 mg PRN Q2HR PRN IV pain Last administered on 07/14/19at 11:10; Start 07/13/19 at 20:30 Nystatin (Mycostatin) 1 reyes TID TP Last administered on 07/14/19at 10:59; Start 07/14/19 at 11:00 Active Scripts Active [place] 5-325 Tablet (Acetaminophen/Hydrocodone Bitart) 1 Each Tablet 1 Tab PO PRN Q6HRS PRN Medrol (Methylprednisolone) 4 Mg Tab.ds.pk 1 Pkg PO UD Cyclobenzaprine Hcl 10 Mg Tablet 1 Tab PO TID Cipro (Ciprofloxacin Hcl) 250 Mg Tablet 1 Tab PO BID Reported Aleve (Naproxen Sodium) 220 Mg Capsule 220 Mg PO PRN Q4HRS PRN Acetaminophen 500 Mg Tablet 2 Tab PO PRN Q8HRS PRN 15 Days Atorvastatin Calcium 20 Mg Tablet 20 Mg PO HS Metoprolol Tartrate 25 Mg Tablet 0.5 Tab PO BID Aspercreme (Lidocaine) 1 Each Adh..patch 1 Patch TP DAILY 30 Days Allergies Allergies: Coded Allergies: No Known Drug Allergies (Unverified , 07/12/19) ROS Review of System Review of Systems Review of Systems Constitutional: Denies fever or chills [] Eyes: Denies change in visual acuity, redness, or eye pain [] HENT: Denies nasal congestion or sore throat [] Respiratory: Denies cough or shortness of breath [] Cardiovascular: No additional information not addressed in HPI [] GI: Denies abdominal pain, nausea, vomiting, bloody stools or diarrhea [] : Denies dysuria or hematuria [] Musculoskeletal: Reports back pain and joint pain Integument: Denies rash or skin lesions [] Neurologic: Denies headache, focal weakness or sensory changes [] Endocrine: Denies polyuria or polydipsia [] 14 PT systems were reviewed and found to be within normal limits, except as documented Musculoskeletal: Yes Gait Disturbance, Yes Joint Stiffness Neurological: Yes Gait Disturbance Physical Exam Physical Exam Physical Exam Physical Exam Constitutional: Well developed, well nourished, mild distress, non-toxic appearance. [] HENT: Normocephalic, atraumatic. Eyes: PERRLA, EOMI, conjunctiva normal, no discharge. [] Neck: Normal range of motion, no tenderness, supple, no stridor. [] Cardiovascular:Heart rate regular rhythm, no murmur [] Lungs & Thorax: Bilateral breath sounds clear to auscultation [] Abdomen: Bowel sounds normal, soft, no tenderness, no masses, no pulsatile masses. [] Skin: Warm, dry, no erythema, no rash. [] Back: No midline tenderness, no CVA tenderness. [] Extremities: No tenderness, no cyanosis, no clubbing, ROM intact, no edema. [] Neurologic: Alert and oriented X 3, no focal deficits noted. [] Psychologic: Affect anxious, judgement normal, mood normal. [] General: Alert, Oriented X3, Cooperative Lungs: Clear to auscultation Heart: RRR Abdomen: Normal bowel sounds, Soft Rectal Exam: not examined PELVIC: Examination not indicated Extremities: No cyanosis Neuro: Normal speech, Cranial nerves 3-12 NL Psych/Mental Status: Mental status NL, Mood NL Vitals Vitals Vital Signs Date Time Temp Pulse Resp B/P (MAP) Pulse Ox O2 Delivery O2 Flow Rate FiO2 07/14/19 11:25 96 Room Air 07/14/19 10:57 97.6 107 18 143/83 (103) 97.6 Labs Labs Laboratory Tests Test 07/13/19 14:53 07/14/19 03:20 White Blood Count 9.2 x10^3/uL (4.0-11.0) 8.5 x10^3/uL (4.0-11.0) Red Blood Count 4.83 x10^6/uL (4.30-5.70) 4.80 x10^6/uL (4.30-5.70) Hemoglobin 15.8 g/dL (13.0-17.5) 15.5 g/dL (13.0-17.5) Hematocrit 46.4 % (39.0-53.0) 46.4 % (39.0-53.0) Mean Corpuscular Volume 96 fL (79-100) 97 fL (79-100) Mean Corpuscular Hemoglobin 33 pg (25-35) 32 pg (25-35) Mean Corpuscular Hemoglobin Concent 34 g/dL (31-37) 33 g/dL (31-37) Red Cell Distribution Width 13.5 % (11.5-14.5) 13.2 % (11.5-14.5) Platelet Count 271 x10^3/uL (140-400) 262 x10^3/uL (140-400) Neutrophils (%) (Auto) 79 % (31-73) 89 % (31-73) Lymphocytes (%) (Auto) 13 % (24-48) 9 % (24-48) Monocytes (%) (Auto) 8 % (0-9) 3 % (0-9) Eosinophils (%) (Auto) 0 % (0-3) 0 % (0-3) Basophils (%) (Auto) 0 % (0-3) 0 % (0-3) Neutrophils # (Auto) 7.3 x10^3/uL (1.8-7.7) 7.5 x10^3/uL (1.8-7.7) Lymphocytes # (Auto) 1.2 x10^3/uL (1.0-4.8) 0.7 x10^3/uL (1.0-4.8) Monocytes # (Auto) 0.7 x10^3/uL (0.0-1.1) 0.2 x10^3/uL (0.0-1.1) Eosinophils # (Auto) 0.0 x10^3/uL (0.0-0.7) 0.0 x10^3/uL (0.0-0.7) Basophils # (Auto) 0.0 x10^3/uL (0.0-0.2) 0.0 x10^3/uL (0.0-0.2) Sodium Level 141 mmol/L (136-145) 140 mmol/L (136-145) Potassium Level 4.2 mmol/L (3.5-5.1) 4.5 mmol/L (3.5-5.1) Chloride Level 104 mmol/L (98-107) 105 mmol/L (98-107) Carbon Dioxide Level 29 mmol/L (21-32) 26 mmol/L (21-32) Anion Gap 8 (6-14) 9 (6-14) Blood Urea Nitrogen 29 mg/dL (8-26) 26 mg/dL (8-26) Creatinine 0.9 mg/dL (0.7-1.3) 0.7 mg/dL (0.7-1.3) Estimated GFR (Cockcroft-Gault) 83.4 111.5 Glucose Level 92 mg/dL (70-99) 155 mg/dL (70-99) Calcium Level 8.9 mg/dL (8.5-10.1) 9.0 mg/dL (8.5-10.1) Laboratory Tests Test 07/13/19 14:53 07/14/19 03:20 White Blood Count 9.2 x10^3/uL (4.0-11.0) 8.5 x10^3/uL (4.0-11.0) Red Blood Count 4.83 x10^6/uL (4.30-5.70) 4.80 x10^6/uL (4.30-5.70) Hemoglobin 15.8 g/dL (13.0-17.5) 15.5 g/dL (13.0-17.5) Hematocrit 46.4 % (39.0-53.0) 46.4 % (39.0-53.0) Mean Corpuscular Volume 96 fL (79-100) 97 fL (79-100) Mean Corpuscular Hemoglobin 33 pg (25-35) 32 pg (25-35) Mean Corpuscular Hemoglobin Concent 34 g/dL (31-37) 33 g/dL (31-37) Red Cell Distribution Width 13.5 % (11.5-14.5) 13.2 % (11.5-14.5) Platelet Count 271 x10^3/uL (140-400) 262 x10^3/uL (140-400) Neutrophils (%) (Auto) 79 % (31-73) 89 % (31-73) Lymphocytes (%) (Auto) 13 % (24-48) 9 % (24-48) Monocytes (%) (Auto) 8 % (0-9) 3 % (0-9) Eosinophils (%) (Auto) 0 % (0-3) 0 % (0-3) Basophils (%) (Auto) 0 % (0-3) 0 % (0-3) Neutrophils # (Auto) 7.3 x10^3/uL (1.8-7.7) 7.5 x10^3/uL (1.8-7.7) Lymphocytes # (Auto) 1.2 x10^3/uL (1.0-4.8) 0.7 x10^3/uL (1.0-4.8) Monocytes # (Auto) 0.7 x10^3/uL (0.0-1.1) 0.2 x10^3/uL (0.0-1.1) Eosinophils # (Auto) 0.0 x10^3/uL (0.0-0.7) 0.0 x10^3/uL (0.0-0.7) Basophils # (Auto) 0.0 x10^3/uL (0.0-0.2) 0.0 x10^3/uL (0.0-0.2) Sodium Level 141 mmol/L (136-145) 140 mmol/L (136-145) Potassium Level 4.2 mmol/L (3.5-5.1) 4.5 mmol/L (3.5-5.1) Chloride Level 104 mmol/L (98-107) 105 mmol/L (98-107) Carbon Dioxide Level 29 mmol/L (21-32) 26 mmol/L (21-32) Anion Gap 8 (6-14) 9 (6-14) Blood Urea Nitrogen 29 mg/dL (8-26) 26 mg/dL (8-26) Creatinine 0.9 mg/dL (0.7-1.3) 0.7 mg/dL (0.7-1.3) Estimated GFR (Cockcroft-Gault) 83.4 111.5 Glucose Level 92 mg/dL (70-99) 155 mg/dL (70-99) Calcium Level 8.9 mg/dL (8.5-10.1) 9.0 mg/dL (8.5-10.1) Images Images CT LUMBAR SPINE WO CONTRAST Indication: Low back pain Technique: Noncontrast CT imaging was performed of the lumbar spine, multiplanar reconstruction images submitted. One or more of the following individualized dose reduction techniques were utilized for this examination: 1. Automated exposure control 2. Adjustment of the mA and/or kV according to patient size 3. Use of iterative reconstruction technique. Comparison: None Findings: There is some motion degradation. No acute lumbar spine fracture is identified. Lumbar vertebral body stature is overall maintained. There is grade 1 anterior spondylolisthesis at L4-5 on the order of 1 cm due to bilateral L4 spondylolysis. There is very mild grade 1 anterior spondylolisthesis at L5-S1. There is multilevel lumbar facet degenerative change. Accurate evaluation for spinal stenosis is limited on this nonmyelographic exam and due to motion. There is degree of narrowing of the far left lateral recess at L4-5 from posteriorly by facet hypertrophic change. There is degree of partial fusion of the right sacroiliac joint. There is scattered atherosclerotic calcification abdominal aorta and iliac arteries. There is severe narrowing of the L4-5 neural foramina bilaterally, also severe narrowing on the left at L5-S1. There is also lesser degree of neural foramina compromise bilaterally at L1-2 and L2-3. There is very mild lumbar levoscoliosis centered near the thoracolumbar junction. There is multilevel thoracolumbar spondylosis, also degree of thoracic ankylosis. There is fairly advanced L4-5 and L5-S1 degenerative disc disease, to lesser degree at L3-4. IMPRESSION: 1. No acute lumbar spine fracture is identified. 2. There is multilevel lumbar neural foramina compromise greatest bilaterally at L4-5 and on the left at L5-S1. 3. There is grade 1 anterior spondylolisthesis at L4-5 due to bilateral L4 spondylolysis. There is very mild grade 1 anterior spondylolisthesis at L5-S1 at which there is facet degenerative change. There is multilevel lumbar facet degenerative change. 4. There is degree of narrowing of the far left lateral recess at L4-5 from posteriorly by facet hypertrophic change. 5. There is lumbar degenerative disc disease greatest at L4-5 and L5-S1. Electronically signed by: Jesus Prasad MD (07/12/2019 7:42 AM) [facility] DICTATED and SIGNED BY: JESUS PRASAD MD DATE: 07/12/19 0742 PATIENT: MIGDALIA MCLAIN ACCOUNT: [id number] : 1950 LOCATION: ER AGE: 69 SEX: M EXAM STATUS: REG ER ORD. PHYSICIAN: CHAZ RHOADES MD REASON: low back pain, abnormal CT of lumbar spine IF CRITICAL [id number] RM 17 PROCEDURE: LUMBAR SPINE WO CONTRAST MRI lumbar spine without contrast HISTORY: Low back pain Multiple sagittal imaging of the lumbar spine performed without contrast There is bilateral spondylolysis and grade 2 anterior thesis of L4 on L5. This results in marked narrowing of the neuroforamen bilaterally. Hypertrophy of facets and ligamentum flavum and mild diffuse circumferential disc bulges and congenital short pedicles results in mild central stenosis. There is normal marrow signal. The conus medullaris tapers by suspected anatomic level. 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 Electronically signed by: Kristy Wilcox III, MD (07/13/2019 7:11 PM) 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 lumbar degenerative disc disease greatest at L4-5 and L5-S1. morbid obesity plan admit iv pain control consult pain management consult DR MARTINO PT/OT DVT PROPHYLAXIS RED ALLEN MD Jul 14, 2019 11:36
[2019-07-14] MEDS ORDERED: ACETAMINOPHEN 500 MG TABLET PO PRN (11:45)
[2019-07-14] MEDS ORDERED: DOCUSATE SODIUM 100 MG CAPSULE. PO PRN (11:45)
[2019-07-14] MEDS ORDERED: 0.9 % SODIUM CHLORIDE 10 ML DISP.SYRIN. IV PRN (11:45)
[2019-07-14] MEDS ORDERED: cloNIDine HCL 0.1 MG TABLET PO PRN (11:45)
[2019-07-14] MEDS ORDERED: ONDANSETRON PF 4 MG/2 ML VIAL. IV PRN (11:45)
[2019-07-14] MEDS ORDERED: ACETAMINOPHEN 325 MG TABLET. PO PRN (11:45)
[2019-07-14] MEDS ORDERED: LORazepam 0.5 MG TABLET PO PRN (11:45)
[2019-07-14] MEDS ORDERED: MAG HYDROX/ALUMINUM HYD/SIMETH 30 ML ORAL.SUSP PO PRN (11:45)
[2019-07-14] MEDS ORDERED: guaiFENesin ORAL 200 MG/10 ML LIQUID. PO PRN (11:45)
[2019-07-14] MEDS ORDERED: ALBUTEROL SULFATE 2.5 MG/3 ML NEBU. NEB PRN (11:45)
[2019-07-14] MEDS: METOPROLOL TART IMMED RELEASE 25 MG TABLET. PO SCH ×2 (11:56→21:33)
[2019-07-14] MEDS: IV NORMAL SALINE 1000ML BAG 1,000 ML IV SCH ×2 (11:56→21:35)
[2019-07-14] MEDS: LIDOCAINE (700MG/PATCH) PATCH. TD SCH (11:59)
[2019-07-14] MEDS ORDERED: NAPROXEN 250 MG TABLET PO PRN (12:00)
[2019-07-14] MEDS: HYDROcodone/APAP 5/325MG 1 TAB TABLET PO PRN ×2 (12:50→19:57)
[2019-07-14] MEDS: CYCLOBENZAPRINE 10 MG TABLET. PO SCH ×2 (12:50→21:34)
--- NOTE | 2019-07-14 13:27 | NUR ---
Wound Care: Attempted to see patient regarding wound care for Skin tear to right medial hip an abrasion to the left elbow. Patient is refusing wound care at this time as he states he is in too much pain. Spoke with RN whom stated patient has been given pain medication accordingly and was not due at this time. Discussed the importance of pressure relief and turning, patient v/u. Will attempt to see patient tomorrow regarding wound care. Addendum: 07/14/19 at 1514 by LISBETH BENITEZ RN This magazine writer agrees with above account, and would like to add that pt brief was saturated. We offered to assist him with a brief change and he stated, "No, just leave it wet. I'll worry about it later." JOSÉ Valenzuela notified
[2019-07-14 15:19] VITALS: BP 145/79
[2019-07-14] MEDS: methylPREDNISolone 4 MG TABLET. PO SCH ×4 (16:30→21:34)
[2019-07-14] MEDS ORDERED: fentaNYL 25MCG/HR PATCH 1 PATCH PATCH.TD72 TD SCH (17:00)
--- NOTE | 2019-07-14 17:25 | NUR ---
Bladder scan done on patient, PVR is 11mL. Will continue to monitor.
[2019-07-14 17:51] LABS: BILIRUBIN,URINE NEGATIVE (NEG); CLARITY,URINE CLEAR; COLOR,URINE YELLOW; NITRITE,URINE NEGATIVE (NEG); PROTEIN,URINE NEGATIVE (NEG-TRACE)
[2019-07-14 18:03] LABS: RBC,URINE 0 /HPF (0-2); WBC,URINE OCC /HPF (0-4)
[2019-07-14 18:04] LABS: BACTERIA,URINE 0 /HPF (0-FEW); SQUAMOUS EPITHELIAL CELL,UR MOD /LPF
[2019-07-14 19:52] VITALS: BP 118/73
[2019-07-14] MEDS: PATCH REMOVAL. MC SCH (21:00)
[2019-07-14] MEDS: ATORVASTATIN CALCIUM 20 MG TABLET PO SCH (21:34)
[2019-07-14] MEDS: ENOXAPARIN 40 MG/0.4 ML SYRINGE. SQ SCH (21:35)
[2019-07-14 23:42] VITALS: BP 162/87
--- NOTE | 2019-07-15 01:42 | CONS ---
DATE OF CONSULTATION: 07/14/2019 ATTENDING PHYSICIAN: Dr. Troy. REASON FOR CONSULTATION: The patient was seen at the request of Dr. Troy for rehab evaluation. HISTORY OF PRESENT ILLNESS: This is a 69-year-old right-handed male admitted through the Emergency Room on 07/14/2019 with complaints of lower back pain with radiation to his left thigh for the last 2 weeks, without any specific injury. The patient lives in an assisted living facility and he is basically at wheelchair level mobility secondary to painful degenerative joint disease of his knees for the last 1 year. He denies any chronic lower back pain. The patient also with known hypercholesterolemia, hypertension, morbid obesity, not known allergic to any medication. The patient denies any trouble with his bowel or bladder control except some constipation, taking narcotics prior to the present hospitalization, basically had been taking naproxen and acetaminophen for pain control. The patient had an MRI scan of his lumbar vertebrae, which revealed multilevel degenerative disk disease and facet degenerative changes with spondylolysis of L4 and L5. PHYSICAL EXAMINATION: The patient, on physical examination today, revealed a middle-aged male. He is alert, oriented to time, place, person and circumstance and follows commands appropriately. Cooperative during the examination. He had significant pain while trying to roll from side to side. He had 5/5 grade muscle strength in his lower extremities and deep tendon reflexes are decreased to absent overall. He had equal perception of touch and pinprick sensation bilaterally. He had crepitus on range of motion of his knee joints without any obvious knee joint effusion and he had no significant pain on range of motion of his hip joints. Straight leg raising test is negative bilaterally. He is morbidly obese. I have not tested his ambulation skills or transfer skills at present time. 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 No clinical evidence of ongoing lumbar radiculopathy, but radiological evidence of multilevel degenerative disk disease and also facet degenerative changes with spondylolysis of L4 and L5. RECOMMENDATIONS: To start him on Medrol Dosepak. Agree with the plans per pain clinic for consideration of lumbar epidural steroid injections. Dr. Troy, I appreciate asking me to participate in the care of this interesting patient. I will be glad to follow him with you as needed by the rehabilitation. FERNIE MARTINO MD DR: FILEMON/kane JOB#: [id number] / [id number]
[2019-07-15] MEDS: HYDROmorphone 2 MG/ML VIAL IV PRN ×7 (01:50→22:46)
[2019-07-15 03:26] VITALS: BP 157/88
[2019-07-15] MEDS: HYDROcodone/APAP 5/325MG 1 TAB TABLET PO PRN ×3 (05:25→17:34)
[2019-07-15 07:00] VITALS: BP 162/90
[2019-07-15] MEDS: LIDOCAINE (700MG/PATCH) PATCH. TD SCH (08:05)
[2019-07-15] MEDS: PANTOPRAZOLE 40 MG TABLET.DR. PO SCH (08:26)
[2019-07-15] MEDS: CYCLOBENZAPRINE 10 MG TABLET. PO SCH ×3 (08:26→21:15)
[2019-07-15] MEDS: methylPREDNISolone 4 MG TABLET. PO SCH ×3 (08:26→17:34)
[2019-07-15] MEDS: METOPROLOL TART IMMED RELEASE 25 MG TABLET. PO SCH ×2 (08:27→21:20)
[2019-07-15] MEDS: ENOXAPARIN 40 MG/0.4 ML SYRINGE. SQ SCH ×2 (08:31→21:15)
[2019-07-15] MEDS: IV NORMAL SALINE 1000ML BAG 1,000 ML IV SCH (08:32)
[2019-07-15] MEDS: NYSTATIN 100,000 UNIT/GM TOPICAL CREAM 15GM TUBE. TP SCH ×3 (08:33→21:20)
--- NOTE | 2019-07-15 09:12 | NUR ---
SW following. Discussed with RN, pt still in a lot of pain. Trying to get pain under control today so pt can move around more. SW awaiting pt ability to work with PT/OT.
--- NOTE | 2019-07-15 09:16 | PDOC ---
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 lumbar degenerative disc disease greatest at L4-5 and L5-S1. morbid obesity plan admit iv pain control consult pain management consult DR MARTINO PT/OT DVT PROPHYLAXIS pain clinic for lumbar INDIGO to help ease his pain. To assisted living facility when his pain is better controlled. Vitals Vitals Vital Signs Date Time Temp Pulse Resp B/P (MAP) Pulse Ox O2 Delivery O2 Flow Rate FiO2 07/15/19 08:31 94 Room Air 07/15/19 08:27 94 162/90 07/15/19 03:26 97.8 20 97.8 Physical Exam General: Alert, Oriented X3, Cooperative, No acute distress, mild distress Heart: Regular rate, Normal S1 Lungs: Clear Abdomen: Normal bowel sounds, Soft, No hepatosplenomegaly Extremities: No cyanosis Skin: No significant lesion Labs LABS Signed PATIENT: MIGDALIA MCLAIN ACCOUNT: [id number] : 1950 LOCATION: ER AGE: 69 SEX: M EXAM STATUS: REG ER ORD. PHYSICIAN: CHAZ RHOADES MD REASON: low back pain, abnormal CT of lumbar spine IF CRITICAL [phone] RM 17 PROCEDURE: LUMBAR SPINE WO CONTRAST MRI lumbar spine without contrast HISTORY: Low back pain Multiple sagittal imaging of the lumbar spine performed without contrast There is bilateral spondylolysis and grade 2 anterior thesis of L4 on L5. This results in marked narrowing of the neuroforamen bilaterally. Hypertrophy of facets and ligamentum flavum and mild diffuse circumferential disc bulges and congenital short pedicles results in mild central stenosis. There is normal marrow signal. The conus medullaris tapers by suspected anatomic level. 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 Electronically signed by: Kristy Wilcox III, MD (07/13/2019 7:11 PM) [facility] DICTATED and SIGNED BY: KRISTY WILCOX III, MD DATE: 01/21/20 1911 Laboratory Tests Test 07/14/19 17:20 Urine Collection Type Unknown Urine Color Yellow Urine Clarity Clear Urine pH 6.0 Urine Specific [place] 1.025 Urine Protein Negative mg/dL (NEG-TRACE) Urine Glucose (UA) Negative mg/dL (NEG) Urine Ketones (Stick) Negative mg/dL (NEG) Urine Blood Negative (NEG) Urine Nitrite Negative (NEG) Urine Bilirubin Negative (NEG) Urine Urobilinogen Dipstick 1.0 mg/dL (0.2 mg/dL) Urine Leukocyte Esterase Negative (NEG) Urine RBC 0 /HPF (0-2) Urine WBC Occ /HPF (0-4) Urine Squamous Epithelial Cells Mod /LPF Urine Bacteria 0 /HPF (0-FEW) Urine Mucus Marked /LPF Assessment and Plan Assessmemt and Plan Problems Medical Problems: (1) Intractable low back pain Status: Acute (2) Sciatica Status: Acute Comment Review of Relevant I have reviewed the following items luz maria (where applicable) has been applied. Labs Laboratory Tests Test 07/13/19 14:53 07/14/19 03:20 07/14/19 17:20 White Blood Count 9.2 x10^3/uL (4.0-11.0) 8.5 x10^3/uL (4.0-11.0) Red Blood Count 4.83 x10^6/uL (4.30-5.70) 4.80 x10^6/uL (4.30-5.70) Hemoglobin 15.8 g/dL (13.0-17.5) 15.5 g/dL (13.0-17.5) Hematocrit 46.4 % (39.0-53.0) 46.4 % (39.0-53.0) Mean Corpuscular Volume 96 fL (79-100) 97 fL (79-100) Mean Corpuscular Hemoglobin 33 pg (25-35) 32 pg (25-35) Mean Corpuscular Hemoglobin Concent 34 g/dL (31-37) 33 g/dL (31-37) Red Cell Distribution Width 13.5 % (11.5-14.5) 13.2 % (11.5-14.5) Platelet Count 271 x10^3/uL (140-400) 262 x10^3/uL (140-400) Neutrophils (%) (Auto) 79 % (31-73) 89 % (31-73) Lymphocytes (%) (Auto) 13 % (24-48) 9 % (24-48) Monocytes (%) (Auto) 8 % (0-9) 3 % (0-9) Eosinophils (%) (Auto) 0 % (0-3) 0 % (0-3) Basophils (%) (Auto) 0 % (0-3) 0 % (0-3) Neutrophils # (Auto) 7.3 x10^3/uL (1.8-7.7) 7.5 x10^3/uL (1.8-7.7) Lymphocytes # (Auto) 1.2 x10^3/uL (1.0-4.8) 0.7 x10^3/uL (1.0-4.8) Monocytes # (Auto) 0.7 x10^3/uL (0.0-1.1) 0.2 x10^3/uL (0.0-1.1) Eosinophils # (Auto) 0.0 x10^3/uL (0.0-0.7) 0.0 x10^3/uL (0.0-0.7) Basophils # (Auto) 0.0 x10^3/uL (0.0-0.2) 0.0 x10^3/uL (0.0-0.2) Sodium Level 141 mmol/L (136-145) 140 mmol/L (136-145) Potassium Level 4.2 mmol/L (3.5-5.1) 4.5 mmol/L (3.5-5.1) Chloride Level 104 mmol/L (98-107) 105 mmol/L (98-107) Carbon Dioxide Level 29 mmol/L (21-32) 26 mmol/L (21-32) Anion Gap 8 (6-14) 9 (6-14) Blood Urea Nitrogen 29 mg/dL (8-26) 26 mg/dL (8-26) Creatinine 0.9 mg/dL (0.7-1.3) 0.7 mg/dL (0.7-1.3) Estimated GFR (Cockcroft-Gault) 83.4 111.5 Glucose Level 92 mg/dL (70-99) 155 mg/dL (70-99) Calcium Level 8.9 mg/dL (8.5-10.1) 9.0 mg/dL (8.5-10.1) Urine Collection Type Unknown Urine Color Yellow Urine Clarity Clear Urine pH 6.0 Urine Specific [place] 1.025 Urine Protein Negative mg/dL (NEG-TRACE) Urine Glucose (UA) Negative mg/dL (NEG) Urine Ketones (Stick) Negative mg/dL (NEG) Urine Blood Negative (NEG) Urine Nitrite Negative (NEG) Urine Bilirubin Negative (NEG) Urine Urobilinogen Dipstick 1.0 mg/dL (0.2 mg/dL) Urine Leukocyte Esterase Negative (NEG) Urine RBC 0 /HPF (0-2) Urine WBC Occ /HPF (0-4) Urine Squamous Epithelial Cells Mod /LPF Urine Bacteria 0 /HPF (0-FEW) Urine Mucus Marked /LPF Laboratory Tests Test 07/14/19 17:20 Urine Collection Type Unknown Urine Color Yellow Urine Clarity Clear Urine pH 6.0 Urine Specific [place] 1.025 Urine Protein Negative mg/dL (NEG-TRACE) Urine Glucose (UA) Negative mg/dL (NEG) Urine Ketones (Stick) Negative mg/dL (NEG) Urine Blood Negative (NEG) Urine Nitrite Negative (NEG) Urine Bilirubin Negative (NEG) Urine Urobilinogen Dipstick 1.0 mg/dL (0.2 mg/dL) Urine Leukocyte Esterase Negative (NEG) Urine RBC 0 /HPF (0-2) Urine WBC Occ /HPF (0-4) Urine Squamous Epithelial Cells Mod /LPF Urine Bacteria 0 /HPF (0-FEW) Urine Mucus Marked /LPF Medications Current Medications Fentanyl Citrate (Fentanyl 2ml Vial) 50 mcg 1X ONCE IVP Last administered on 07/13/19at 15:07; Start 07/13/19 at 15:00; Stop 07/13/19 at 15:03; Status DC Orphenadrine Citrate (Norflex) 60 mg 1X ONCE IV Last administered on 07/13/19at 16:26; Start 07/13/19 at 15:45; Stop 07/13/19 at 15:46; Status DC Ketorolac Tromethamine (Toradol 30mg Vial) 30 mg 1X ONCE IVP Last administered on 07/13/19at 16:25; Start 07/13/19 at 15:45; Stop 07/13/19 at 15:46; Status DC Methylprednisolone Sodium Succinate (SOLU-Medrol 125MG VIAL) 125 mg 1X ONCE IV Last administered on 07/13/19at 16:26; Start 07/13/19 at 15:45; Stop 07/13/19 at 15:46; Status DC Hydromorphone HCl (Dilaudid) 1 mg 1X ONCE IV Last administered on 07/13/19at 17:27; Start 07/13/19 at 17:30; Stop 07/13/19 at 17:31; Status DC Ondansetron HCl (Zofran) 4 mg PRN Q8HRS PRN IV NAUSEA/VOMITING; Start 07/13/19 at 20:30; Stop 07/14/19 at 11:43; Status DC Hydromorphone HCl (Dilaudid) 0.5 mg PRN Q2HR PRN IV pain Last administered on 07/14/19at 19:58; Start 07/13/19 at 20:30; Stop 07/14/19 at 21:43; Status DC Nystatin (Mycostatin) 1 reyes TID TP Last administered on 07/15/19at 08:33; Start 07/14/19 at 11:00 Sodium Chloride (Normal Saline Flush) 3 ml QSHIFT PRN IV AFTER MEDS AND BLOOD DRAWS; Start 07/14/19 at 11:45 Sodium Chloride 1,000 ml @ 60 mls/hr [id number] IV Last administered on 07/15/19at 08:32; Start 07/14/19 at 12:00 Ondansetron HCl (Zofran) 4 mg PRN Q4HRS PRN IV NAUSEA/VOMITING; Start 07/14/19 at 11:45 Acetaminophen (Tylenol) 650 mg PRN Q4HRS PRN PO TEMP OVER 100.4F OR MILD PAIN; Start 07/14/19 at 11:45; Stop 07/14/19 at 11:46; Status DC Al Hydroxide/Mg Hydroxide (Mylanta Plus Xs) 30 ml PRN DAILY PRN PO HEARTBURN / GAS; Start 07/14/19 at 11:45 Clonidine HCl (Catapres) 0.1 mg PRN Q6HRS PRN PO SBP>160 OR DBP>90; Start 07/14/19 at 11:45 Docusate Sodium (Colace) 100 mg PRN BID PRN PO CONSTIPATION; Start 07/14/19 at 11:45 Albuterol Sulfate (Ventolin Neb Soln) 2.5 mg PRN Q4HRS PRN NEB SHORTNESS OF BREATH; Start 07/14/19 at 11:45 Guaifenesin (Robitussin) 200 mg PRN Q4HRS PRN PO COUGH; Start 07/14/19 at 11:45 Lorazepam (Ativan) 0.5 mg PRN Q4HRS PRN PO ANXIETY / AGITATION; Start 07/14/19 at 11:45 Enoxaparin Sodium (Lovenox 40mg Syringe) 40 mg Q12H SQ Last administered on 07/15/19at 08:31; Start 07/14/19 at 21:00 Acetaminophen (Tylenol) 1,000 mg PRN Q8HRS PRN PO MILD PAIN / TEMP Last admin istered on 07/14/19at 22:14; Start 07/14/19 at 11:45 Atorvastatin Calcium (Lipitor) 20 mg HS PO Last administered on 07/14/19at 2 1:34; Start 07/14/19 at 21:00 Cyclobenzaprine HCl (Flexeril) 10 mg TID PO Last administered on 07/15/19at 08:26; Start 07/14/19 at 14:00 Acetaminophen/ Hydrocodone Bitart (Lortab 5/325) 1 tab PRN Q6HRS PRN PO MODERATE TO SEVERE PAIN Last administered on 07/15/19at 05:25; Start 07/14/19 at 11:45 Metoprolol Tartrate (Lopressor) 12.5 mg BID PO Last administered on 07/15/19at 08:27; Start 07/14/19 at 12:00 Lidocaine (Lidoderm) 1 patch DAILY TD ; Start 07/14/19 at 12:00 Naproxen (Naprosyn) 250 mg PRN Q4HRS PRN PO INFLAMMATION Last administered on 07/14/19at 22:14; Start 07/14/19 at 12:00 Miscellaneous (Lidoderm Patch Removal) 1 ea QHS MC Last administered on 07/14/19at 21:00; Start 07/14/19 at 21:00 Methylprednisolone (Medrol) 8 mg BID PO Last administered on 07/14/19at 21:34; Start 07/14/19 at 17:00; Stop 1/22/20 at 21:01; Status DC Methylprednisolone (Medrol) 4 mg BIDPCLD PO Last administered on 07/14/19at 17:35; Start 07/14/19 at 17:00; Stop 07/14/19 at 18:31; Status DC Methylprednisolone (Medrol) 4 mg TIDPC PO Last administered on 07/15/19at 08:26; Start 07/15/19 at 08:30; Stop 07/15/19 at 17:31 Methylprednisolone (Medrol) 8 mg QHS PO ; Start 07/15/19 at 21:00; Stop 07/15/19 at 21:01 Methylprednisolone (Medrol) 4 mg QIDAFTMEAL PO ; Start 07/16/19 at 09:00; Stop 07/16/19 at 21:01 Methylprednisolone (Medrol) 4 mg TID PO ; Start 07/17/19 at 09:00; Stop 07/17/19 at 21:01 Methylprednisolone (Medrol) 4 mg BID PO ; Start 07/18/19 at 09:00; Stop 07/18/19 at 21:01 Methylprednisolone (Medrol) 4 mg DAILY PO ; Start 07/19/19 at 09:00; Stop 07/19/19 at 09:01 Fentanyl (Duragesic 25mcg/ Hr Patch) 1 patch Q3DAYS TD Last administered on 07/14/19at 16:31; Start 07/14/19 at 17:00 Pantoprazole Sodium (Protonix) 40 mg DAILYAC PO Last administered on 07/15/19at 08:26; Start 07/15/19 at 07:30 Hydromorphone HCl (Dilaudid) 1 mg PRN Q3HRS PRN IV SEVERE PAIN 7-10 Last administered on 07/15/19at 08:31; Start 07/14/19 at 21:45 Active Scripts Active [place] 5-325 Tablet (Acetaminophen/Hydrocodone Bitart) 1 Each Tablet 1 Tab PO PRN Q6HRS PRN Medrol (Methylprednisolone) 4 Mg Tab.ds.pk 1 Pkg PO UD Cyclobenzaprine Hcl 10 Mg Tablet 1 Tab PO TID Cipro (Ciprofloxacin Hcl) 250 Mg Tablet 1 Tab PO BID Reported Aleve (Naproxen Sodium) 220 Mg Capsule 220 Mg PO PRN Q4HRS PRN Acetaminophen 500 Mg Tablet 2 Tab PO PRN Q8HRS PRN 15 Days Atorvastatin Calcium 20 Mg Tablet 20 Mg PO HS Metoprolol Tartrate 25 Mg Tablet 0.5 Tab PO BID Aspercreme (Lidocaine) 1 Each Adh..patch 1 Patch TP DAILY 30 Days Vitals/I & O Vital Sign - Last 24 Hours 07/14/19 07/14/19 07/14/19 07/14/19 10:57 11:10 11:25 11:56 Temp 97.6 97.6 Pulse 107 107 Resp 18 B/P (MAP) 143/83 (103) 143/83 Pulse Ox 96 96 96 O2 Delivery Room Air Room Air Room Air 07/14/19 07/14/19 07/14/19 07/14/19 12:50 13:54 14:10 14:49 Pulse Ox 96 96 96 96 O2 Delivery Room Air Room Air Room Air Room Air 07/14/19 07/14/19 07/14/19 07/14/19 15:19 16:31 16:36 16:59 Temp 97.7 97.7 Pulse 101 Resp 20 B/P (MAP) 145/79 (101) Pulse Ox 97 97 97 97 O2 Delivery Room Air Room Air Room Air Room Air 07/14/19 07/14/19 07/14/19 07/14/19 19:30 19:52 19:57 19:58 Temp 97.7 97.7 Pulse 90 Resp 20 B/P (MAP) 118/73 (88) Pulse Ox 95 O2 Delivery Room Air Room Air Room Air Room Air 07/14/19 07/14/19 07/14/19 07/14/19 20:30 20:30 21:00 21:33 Pulse 90 B/P (MAP) 118/73 O2 Delivery Room Air Room Air Room Air 07/14/19 07/14/19 07/14/19 07/15/19 22:48 23:20 23:42 01:50 Temp 97.7 97.7 Pulse 90 Resp 20 B/P (MAP) 162/87 (112) Pulse Ox 94 94 O2 Delivery Room Air Room Air Room Air Room Air 07/15/19 07/15/19 07/15/19 07/15/19 02:24 03:26 05:25 05:25 Temp 97.8 97.8 Pulse 84 Resp 20 B/P (MAP) 157/88 (111) Pulse Ox 94 O2 Delivery Room Air Room Air Room Air Room Air 07/15/19 07/15/19 07/15/19 07/15/19 05:55 06:25 07:29 08:27 Pulse 94 B/P (MAP) 162/90 O2 Delivery Room Air Room Air Room Air 07/15/19 08:31 Pulse Ox 94 O2 Delivery Room Air Intake and Output 07/14/19 07/14/19 07/15/19 15:00 23:00 07:00 Intake Total 220 ml 390 ml 400 ml Balance 220 ml 390 ml 400 ml RED ALLEN MD Jul 15, 2019 09:16
--- NOTE | 2019-07-15 09:46 | PDOC ---
PROGRESS NOTES Subjective Subjective He slept better last night but pain came back when he got up to go to bathroom with roller walker. Objective Objective Vital Signs Date Time Temp Pulse Resp B/P (MAP) Pulse Ox O2 Delivery O2 Flow Rate FiO2 07/15/19 08:31 94 Room Air 07/15/19 08:27 94 162/90 07/15/19 07:00 98.1 18 98.1 Intake and Output 07/15/19 07:00 Intake Total 1010 ml Balance 1010 ml Intake Oral 1010 ml # Voids 5 Physical Exam Physical Exam He is alert,supine in bed and no change noted with his neurological examination. He continues with painfully limited lumbar spine ROM without any muscle spasm. Assessment Assessment Problems Medical Problems: (1) Intractable low back pain Status: Acute (2) Sciatica Status: Acute Plan Plan of Care Await pain clinic for lumbar INDIGO to help ease his pain. To assisted living facility when his pain is better controlled. Comment Review of Relevant I have reviewed the following items luz maria (where applicable) has been applied. Labs Laboratory Tests Test 07/13/19 14:53 07/14/19 03:20 07/14/19 17:20 White Blood Count 9.2 x10^3/uL (4.0-11.0) 8.5 x10^3/uL (4.0-11.0) Red Blood Count 4.83 x10^6/uL (4.30-5.70) 4.80 x10^6/uL (4.30-5.70) Hemoglobin 15.8 g/dL (13.0-17.5) 15.5 g/dL (13.0-17.5) Hematocrit 46.4 % (39.0-53.0) 46.4 % (39.0-53.0) Mean Corpuscular Volume 96 fL (79-100) 97 fL (79-100) Mean Corpuscular Hemoglobin 33 pg (25-35) 32 pg (25-35) Mean Corpuscular Hemoglobin Concent 34 g/dL (31-37) 33 g/dL (31-37) Red Cell Distribution Width 13.5 % (11.5-14.5) 13.2 % (11.5-14.5) Platelet Count 271 x10^3/uL (140-400) 262 x10^3/uL (140-400) Neutrophils (%) (Auto) 79 % (31-73) 89 % (31-73) Lymphocytes (%) (Auto) 13 % (24-48) 9 % (24-48) Monocytes (%) (Auto) 8 % (0-9) 3 % (0-9) Eosinophils (%) (Auto) 0 % (0-3) 0 % (0-3) Basophils (%) (Auto) 0 % (0-3) 0 % (0-3) Neutrophils # (Auto) 7.3 x10^3/uL (1.8-7.7) 7.5 x10^3/uL (1.8-7.7) Lymphocytes # (Auto) 1.2 x10^3/uL (1.0-4.8) 0.7 x10^3/uL (1.0-4.8) Monocytes # (Auto) 0.7 x10^3/uL (0.0-1.1) 0.2 x10^3/uL (0.0-1.1) Eosinophils # (Auto) 0.0 x10^3/uL (0.0-0.7) 0.0 x10^3/uL (0.0-0.7) Basophils # (Auto) 0.0 x10^3/uL (0.0-0.2) 0.0 x10^3/uL (0.0-0.2) Sodium Level 141 mmol/L (136-145) 140 mmol/L (136-145) Potassium Level 4.2 mmol/L (3.5-5.1) 4.5 mmol/L (3.5-5.1) Chloride Level 104 mmol/L (98-107) 105 mmol/L (98-107) Carbon Dioxide Level 29 mmol/L (21-32) 26 mmol/L (21-32) Anion Gap 8 (6-14) 9 (6-14) Blood Urea Nitrogen 29 mg/dL (8-26) 26 mg/dL (8-26) Creatinine 0.9 mg/dL (0.7-1.3) 0.7 mg/dL (0.7-1.3) Estimated GFR (Cockcroft-Gault) 83.4 111.5 Glucose Level 92 mg/dL (70-99) 155 mg/dL (70-99) Calcium Level 8.9 mg/dL (8.5-10.1) 9.0 mg/dL (8.5-10.1) Urine Collection Type Unknown Urine Color Yellow Urine Clarity Clear Urine pH 6.0 Urine Specific [place] 1.025 Urine Protein Negative mg/dL (NEG-TRACE) Urine Glucose (UA) Negative mg/dL (NEG) Urine Ketones (Stick) Negative mg/dL (NEG) Urine Blood Negative (NEG) Urine Nitrite Negative (NEG) Urine Bilirubin Negative (NEG) Urine Urobilinogen Dipstick 1.0 mg/dL (0.2 mg/dL) Urine Leukocyte Esterase Negative (NEG) Urine RBC 0 /HPF (0-2) Urine WBC Occ /HPF (0-4) Urine Squamous Epithelial Cells Mod /LPF Urine Bacteria 0 /HPF (0-FEW) Urine Mucus Marked /LPF Laboratory Tests Test 07/14/19 17:20 Urine Collection Type Unknown Urine Color Yellow Urine Clarity Clear Urine pH 6.0 Urine Specific [place] 1.025 Urine Protein Negative mg/dL (NEG-TRACE) Urine Glucose (UA) Negative mg/dL (NEG) Urine Ketones (Stick) Negative mg/dL (NEG) Urine Blood Negative (NEG) Urine Nitrite Negative (NEG) Urine Bilirubin Negative (NEG) Urine Urobilinogen Dipstick 1.0 mg/dL (0.2 mg/dL) Urine Leukocyte Esterase Negative (NEG) Urine RBC 0 /HPF (0-2) Urine WBC Occ /HPF (0-4) Urine Squamous Epithelial Cells Mod /LPF Urine Bacteria 0 /HPF (0-FEW) Urine Mucus Marked /LPF Medications Current Medications Fentanyl Citrate (Fentanyl 2ml Vial) 50 mcg 1X ONCE IVP Last administered on 07/13/19at 15:07; Start 07/13/19 at 15:00; Stop 07/13/19 at 15:03; Status DC Orphenadrine Citrate (Norflex) 60 mg 1X ONCE IV Last administered on 07/13/19at 16:26; Start 07/13/19 at 15:45; Stop 07/13/19 at 15:46; Status DC Ketorolac Tromethamine (Toradol 30mg Vial) 30 mg 1X ONCE IVP Last administered on 07/13/19at 16:25; Start 07/13/19 at 15:45; Stop 07/13/19 at 15:46; Status DC Methylprednisolone Sodium Succinate (SOLU-Medrol 125MG VIAL) 125 mg 1X ONCE IV Last administered on 07/13/19at 16:26; Start 07/13/19 at 15:45; Stop 07/13/19 at 15:46; Status DC Hydromorphone HCl (Dilaudid) 1 mg 1X ONCE IV Last administered on 07/13/19at 17:27; Start 07/13/19 at 17:30; Stop 07/13/19 at 17:31; Status DC Ondansetron HCl (Zofran) 4 mg PRN Q8HRS PRN IV NAUSEA/VOMITING; Start 07/13/19 at 20:30; Stop 07/14/19 at 11:43; Status DC Hydromorphone HCl (Dilaudid) 0.5 mg PRN Q2HR PRN IV pain Last administered on 07/14/19at 19:58; Start 07/13/19 at 20:30; Stop 07/14/19 at 21:43; Status DC Nystatin (Mycostatin) 1 reyes TID TP Last administered on 07/15/19at 08:33; Start 07/14/19 at 11:00 Sodium Chloride (Normal Saline Flush) 3 ml QSHIFT PRN IV AFTER MEDS AND BLOOD DRAWS; Start 07/14/19 at 11:45 Sodium Chloride 1,000 ml @ 60 mls/hr [id number] IV Last administered on 07/15/19at 08:32; Start 07/14/19 at 12:00 Ondansetron HCl (Zofran) 4 mg PRN Q4HRS PRN IV NAUSEA/VOMITING; Start 07/14/19 at 11:45 Acetaminophen (Tylenol) 650 mg PRN Q4HRS PRN PO TEMP OVER 100.4F OR MILD PAIN; Start 07/14/19 at 11:45; Stop 07/14/19 at 11:46; Status DC Al Hydroxide/Mg Hydroxide (Mylanta Plus Xs) 30 ml PRN DAILY PRN PO HEARTBURN / GAS; Start 07/14/19 at 11:45 Clonidine HCl (Catapres) 0.1 mg PRN Q6HRS PRN PO SBP>160 OR DBP>90; Start 07/14/19 at 11:45 Docusate Sodium (Colace) 100 mg PRN BID PRN PO CONSTIPATION; Start 07/14/19 at 11:45 Albuterol Sulfate (Ventolin Neb Soln) 2.5 mg PRN Q4HRS PRN NEB SHORTNESS OF BREATH; Start 07/14/19 at 11:45 Guaifenesin (Robitussin) 200 mg PRN Q4HRS PRN PO COUGH; Start 07/14/19 at 11:45 Lorazepam (Ativan) 0.5 mg PRN Q4HRS PRN PO ANXIETY / AGITATION; Start 07/14/19 at 11:45 Enoxaparin Sodium (Lovenox 40mg Syringe) 40 mg Q12H SQ Last administered on 07/15/19at 08:31; Start 07/14/19 at 21:00 Acetaminophen (Tylenol) 1,000 mg PRN Q8HRS PRN PO MILD PAIN / TEMP Last administered on 07/14/19at 22:14; Start 07/14/19 at 11:45 Atorvastatin Calcium (Lipitor) 20 mg HS PO Last administered on 07/14/19at 21:34; Start 07/14/19 at 21:00 Cyclobenzaprine HCl (Flexeril) 10 mg TID PO Last administered on 07/15/19at 08:26; Start 07/14/19 at 14:00 Acetaminophen/ Hydrocodone Bitart (Lortab 5/325) 1 tab PRN Q6HRS PRN PO MODERATE TO SEVERE PAIN Last administered on 07/15/19at 05:25; Start 07/14/19 at 11:45 Metoprolol Tartrate (Lopressor) 12.5 mg BID PO Last administered on 07/15/19at 08:27; Start 07/14/19 at 12:00 Lidocaine (Lidoderm) 1 patch DAILY TD ; Start 07/14/19 at 12:00 Naproxen (Naprosyn) 250 mg PRN Q4HRS PRN PO INFLAMMATION Last administered on 07/14/19at 22:14; Start 07/14/19 at 12:00 Miscellaneous (Lidoderm Patch Removal) 1 ea QHS MC Last administered on 07/14/19 at 21:00; Start 07/14/19 at 21:00 Methylprednisolone (Medrol) 8 mg BID PO Last administered on 07/14/19at 21:34; Start 07/14/19 at 17:00; Stop 07/14/19 at 21:01; Status DC Methylprednisolone (Medrol) 4 mg BIDPCLD PO Last administered on 07/14/19at 17:35; Start 07/14/19 at 17:00; Stop 07/14/19 at 18:31; Status DC Methylprednisolone (Medrol) 4 mg TIDPC PO Last administered on 07/15/19at 08:26; Start 07/15/19 at 08:30; Stop 07/15/19 at 17:31 Methylprednisolone (Medrol) 8 mg QHS PO ; Start 07/15/19 at 21:00; Stop 07/15/19 at 21:01 Methylprednisolone (Medrol) 4 mg QIDAFTMEAL PO ; Start 07/16/19 at 09:00; Stop 07/16/19 at 21:01 Methylprednisolone (Medrol) 4 mg TID PO ; Start 07/17/19 at 09:00; Stop 07/17/19 at 21:01 Methylprednisolone (Medrol) 4 mg BID PO ; Start 07/18/19 at 09:00; Stop 07/18/19 at 21:01 Methylprednisolone (Medrol) 4 mg DAILY PO ; Start 07/19/19 at 09:00; Stop 07/19/19 at 09:01 Fentanyl (Duragesic 25mcg/ Hr Patch) 1 patch Q3DAYS TD Last administered on 07/14/19at 16:31; Start 07/14/19 at 17:00 Pantoprazole Sodium (Protonix) 40 mg DAILYAC PO Last administered on 07/15/19at 08:26; Start 07/15/19 at 07:30 Hydromorphone HCl (Dilaudid) 1 mg PRN Q3HRS PRN IV SEVERE PAIN 7-10 Last administered on 07/15/19at 08:31; Start 07/14/19 at 21:45 Active Scripts Active [place] 5-325 Tablet (Acetaminophen/Hydrocodone Bitart) 1 Each Tablet 1 Tab PO PRN Q6HRS PRN Medrol (Methylprednisolone) 4 Mg Tab.ds.pk 1 Pkg PO UD Cyclobenzaprine Hcl 10 Mg Tablet 1 Tab PO TID Cipro (Ciprofloxacin Hcl) 250 Mg Tablet 1 Tab PO BID Reported Aleve (Naproxen Sodium) 220 Mg Capsule 220 Mg PO PRN Q4HRS PRN Acetaminophen 500 Mg Tablet 2 Tab PO PRN Q8HRS PRN 15 Days Atorvastatin Calcium 20 Mg Tablet 20 Mg PO HS Metoprolol Tartrate 25 Mg Tablet 0.5 Tab PO BID Aspercreme (Lidocaine) 1 Each Adh..patch 1 Patch TP DAILY 30 Days Vitals/I & O Vital Sign - Last 24 Hours 07/14/19 07/14/19 07/14/19 07/14/19 10:57 11:10 11:25 11:56 Temp 97.6 97.6 Pulse 107 107 Resp 18 B/P (MAP) 143/83 (103) 143/83 Pulse Ox 96 96 96 O2 Delivery Room Air Room Air Room Air 07/14/19 07/14/19 07/14/19 07/14/19 12:50 13:54 14:10 14:49 Pulse Ox 96 96 96 96 O2 Delivery Room Air Room Air Room Air Room Air 07/14/19 07/14/19 07/14/19 07/14/19 15:19 16:31 16:36 16:59 Temp 97.7 97.7 Pulse 101 Resp 20 B/P (MAP) 145/79 (101) Pulse Ox 97 97 97 97 O2 Delivery Room Air Room Air Room Air Room Air 07/14/19 07/14/19 07/14/19 07/14/19 19:30 19:52 19:57 19:58 Temp 97.7 97.7 Pulse 90 Resp 20 B/P (MAP) 118/73 (88) Pulse Ox 95 O2 Delivery Room Air Room Air Room Air Room Air 07/14/19 07/14/19 07/14/19 07/14/19 20:30 20:30 21:00 21:33 Pulse 90 B/P (MAP) 118/73 O2 Delivery Room Air Room Air Room Air 07/14/19 07/14/19 07/14/19 07/15/19 22:48 23:20 23:42 01:50 Temp 97.7 97.7 Pulse 90 Resp 20 B/P (MAP) 162/87 (112) Pulse Ox 94 94 O2 Delivery Room Air Room Air Room Air Room Air 07/15/19 07/15/19 07/15/19 07/15/19 02:24 03:26 05:25 05:25 Temp 97.8 97.8 Pulse 84 Resp 20 B/P (MAP) 157/88 (111) Pulse Ox 94 O2 Delivery Room Air Room Air Room Air Room Air 07/15/19 07/15/19 07/15/19 07/15/19 05:55 06:25 07:00 07:29 Temp 98.1 98.1 Pulse 94 Resp 18 B/P (MAP) 162/90 (114) Pulse Ox 92 O2 Delivery Room Air Room Air Room Air Room Air 07/15/19 07/15/19 08:27 08:31 Pulse 94 B/P (MAP) 162/90 Pulse Ox 94 O2 Delivery Room Air Intake and Output 07/14/19 07/14/19 07/15/19 15:00 23:00 07:00 Intake Total 220 ml 390 ml 400 ml Balance 220 ml 390 ml 400 ml FERNIE MARTINO MD Jul 15, 2019 09:46
[2019-07-15 11:00] VITALS: BP 164/86
--- NOTE | 2019-07-15 11:49 | PDOC ---
SUBJECTIVE Subjective Low back and left leg pain OBJECTIVE Objective 69 yo male C/0 low back pain with radiation to his left LE x 2 weeks, without any specific injury. 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 He denies any chronic lower back pain. The patient also with known hypercholesterolemia, hypertension, morbid obesity, not known allergic to any medication. The patient denies any trouble with his bowel or bladder control except some constipation, taking narcotics prior to the present hospitalization, had been taking naproxen and acetaminophen for pain control. The patient had a Lumbar MRI, which revealed multilevel degenerative disk disease and facet degenerative changes with spondylolysis of L4 and L5. Vital Signs Vital Signs Date Time Temp Pulse Resp B/P (MAP) Pulse Ox O2 Delivery O2 Flow Rate FiO2 07/15/19 11:35 Room Air 07/15/19 11:34 Room Air 07/15/19 10:11 94 Room Air 07/15/19 08:31 94 Room Air 07/15/19 08:27 94 162/90 07/15/19 07:29 Room Air 07/15/19 07:00 98.1 94 18 162/90 (114) 92 Room Air 98.1 07/15/19 06:25 Room Air 07/15/19 05:55 Room Air 07/15/19 05:25 Room Air 07/15/19 05:25 Room Air 07/15/19 03:26 97.8 84 20 157/88 (111) 94 Room Air 97.8 07/15/19 02:24 Room Air 07/15/19 01:50 94 Room Air 07/14/19 23:42 97.7 90 20 162/87 (112) 94 Room Air 97.7 07/14/19 23:20 Room Air 07/14/19 22:48 Room Air 07/14/19 21:33 90 118/73 07/14/19 21:00 Room Air 07/14/19 20:30 Room Air 07/14/19 20:30 Room Air 07/14/19 19:58 Room Air 07/14/19 19:57 Room Air 07/14/19 19:52 97.7 90 20 118/73 (88) 95 Room Air 97.7 07/14/19 19:30 Room Air 07/14/19 16:59 97 Room Air 07/14/19 16:36 97 Room Air 07/14/19 16:31 97 Room Air 07/14/19 15:19 97.7 101 20 145/79 (101) 97 Room Air 97.7 07/14/19 14:49 96 Room Air 07/14/19 14:10 96 Room Air 07/14/19 13:54 96 Room Air 07/14/19 12:50 96 Room Air 07/14/19 11:56 107 143/83 I & O Intake and Output 07/15/19 07:00 Intake Total 1010 ml Balance 1010 ml Intake Oral 1010 ml # Voids 5 ASSESSMENT/PLAN Assessment/Plan MRI reviewed. PT in progress, medrol orally started. If not signifigantly improved, may benefit from LESI as OP, once discharged and prior to rehab facility placement. COMMENT Lab Laboratory Tests Test 07/14/19 17:20 Urine Collection Type Unknown Urine Color Yellow Urine Clarity Clear Urine pH 6.0 Urine Specific [place] 1.025 Urine Protein Negative mg/dL (NEG-TRACE) Urine Glucose (UA) Negative mg/dL (NEG) Urine Ketones (Stick) Negative mg/dL (NEG) Urine Blood Negative (NEG) Urine Nitrite Negative (NEG) Urine Bilirubin Negative (NEG) Urine Urobilinogen Dipstick 1.0 mg/dL (0.2 mg/dL) Urine Leukocyte Esterase Negative (NEG) Urine RBC 0 /HPF (0-2) Urine WBC Occ /HPF (0-4) Urine Squamous Epithelial Cells Mod /LPF Urine Bacteria 0 /HPF (0-FEW) Urine Mucus Marked /LPF DOMINGUEZ ORELLANA MD Jul 15, 2019 11:49
[2019-07-15] MEDS ORDERED: MAGNESIUM HYDROXIDE 2,400 MG/30 ML ORAL.SUSP. PO PRN (12:15)
[2019-07-15] MEDS: POLYETHYLENE GLYCOL 3350 17 GM PACKET. PO SCH (13:56)
--- NOTE | 2019-07-15 14:52 | NUR ---
Wound care: Patient seen per wound care consult. See wound assessment. Patient has skin tear to right hip/back area. Wound cleansed and assessed. Recommendations for contact layer and foam dressing. Dressing applied. No other wounds noted upon full inspection. Patient repositioned. Dressing change instructions left in room. Patient has Nystatin cream for the yeast and redness under pannus and bilateral groin areas. Bed lowered and call light in reach. Will follow patient regarding wound care.
[2019-07-15 15:00] VITALS: BP 164/81
[2019-07-15] MEDS ORDERED: cefTRIAXone IV Push 1 GM VIAL. IVP SCH (15:30)
[2019-07-15 19:20] VITALS: BP 155/92
[2019-07-15] MEDS ORDERED: methylPREDNISolone 4 MG TABLET. PO SCH (21:00)
[2019-07-15] MEDS: PATCH REMOVAL. MC SCH (21:00)
[2019-07-15] MEDS: ATORVASTATIN CALCIUM 20 MG TABLET PO SCH (21:15)
[2019-07-15 23:05] VITALS: BP 167/81
[2019-07-16] MEDS: HYDROcodone/APAP 5/325MG 1 TAB TABLET PO PRN (01:49)
[2019-07-16] MEDS: HYDROmorphone 2 MG/ML VIAL IV PRN ×3 (01:50→07:46)
[2019-07-16] MEDS: IV NORMAL SALINE 1000ML BAG 1,000 ML IV SCH (01:57)
[2019-07-16 03:23] VITALS: BP 162/86
[2019-07-16] MEDS: PANTOPRAZOLE 40 MG TABLET.DR. PO SCH (06:25)
[2019-07-16 07:00] VITALS: BP 166/95
[2019-07-16] MEDS: CYCLOBENZAPRINE 10 MG TABLET. PO SCH ×2 (08:49→14:14)
[2019-07-16] MEDS: methylPREDNISolone 4 MG TABLET. PO SCH ×2 (08:49→14:14)
[2019-07-16] MEDS: POLYETHYLENE GLYCOL 3350 17 GM PACKET. PO SCH (08:49)
[2019-07-16] MEDS: METOPROLOL TART IMMED RELEASE 25 MG TABLET. PO SCH (08:50)
[2019-07-16] MEDS: LIDOCAINE (700MG/PATCH) PATCH. TD SCH (08:50)
[2019-07-16] MEDS: ENOXAPARIN 40 MG/0.4 ML SYRINGE. SQ SCH (08:50)
[2019-07-16] MEDS: NYSTATIN 100,000 UNIT/GM TOPICAL CREAM 15GM TUBE. TP SCH ×2 (08:53→14:00)
--- NOTE | 2019-07-16 08:55 | PDOC ---
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 lumbar degenerative disc disease greatest at L4-5 and L5-S1. morbid obesity plan admit iv pain control consult pain management DR MARTINO FOLLOWING PT/OT DVT PROPHYLAXIS pain clinic for lumbar INDIGO to help ease his pain. To assisted living facility when his pain is better controlled. Discharge Recommendations * [facility] Unit * * PAIN NOT MUCH IMPROVED WITH ACTIVITY * * * Premedicated PT PAIN COMMENTS * Pt pain 5/10 at start of session and incr after activity to 8/10 Supine to Sit Assistance Required * Mod Assistance Bed Mobility Comments * pt with difficulty scooting hips to EOB Vitals Vitals Vital Signs Date Time Temp Pulse Resp B/P (MAP) Pulse Ox O2 Delivery O2 Flow Rate FiO2 07/16/19 07:51 Room Air 07/16/19 07:00 98.0 86 18 166/95 (118) 96 98.0 Physical Exam General: Alert, Oriented X3, Cooperative, No acute distress, mild distress Heart: Regular rate, Normal S1 Lungs: Clear Abdomen: Normal bowel sounds, Soft, No hepatosplenomegaly Extremities: No cyanosis Skin: No significant lesion Labs LABS safe return to assisted living. Unsure if pt will agree to SNU stay Patient Stated Goal * return home. Rehab Potential to Achieve Goals * Good Learning Preferences * One-on-One Instruction * Demonstration * Discussion Problem List (body system elements) * Impaired fnctnl mobility * Strength * Obesity * Balance * Knowledge-Body Mechanics * Coordination * Knowledge-safe techniques * Pain Clinical Presentation * Evolving Evaluation Complexity Level * Moderate Complexity Pt/caregiver agrees with plan of care/goals * Yes Patient condition at conclusion of therapy * Pt in chair * Call light in reach * Phone in reach * PtIn no apparent distress * Pt denies further needs Communicated Patient Care With (Name, Title) * Bianca RN; Michelle OT Goal 1 - Bed Mobility Assistance Required * Independent Goal 1 Assessment * Appropriate - Continue Goal 2 - Transfers Assistance Required * Independent Goal 2 - Transfer Type * Stand-Pivot Goal 2 Assessment * Appropriate - Continue Treatment Plan * Therapeutic Exercise * Bed Mobility Training * Transfer training * Dynamic Balance Training Frequency of Treatment Expected * 6 visits/week Duration of Treatment Expected * 2 weeks Discharge Recommendations * Usp Unit Discharge Recommendation Comments * Will continue to assess for discharge needs Assessment and Plan Assessmemt and Plan Problems Medical Problems: (1) Intractable low back pain Status: Acute (2) Sciatica Status: Acute Comment Review of Relevant I have reviewed the following items luz maria (where applicable) has been applied. Labs Laboratory Tests Test 07/14/19 17:20 Urine Collection Type Unknown Urine Color Yellow Urine Clarity Clear Urine pH 6.0 Urine Specific [place] 1.025 Urine Protein Negative mg/dL (NEG-TRACE) Urine Glucose (UA) Negative mg/dL (NEG) Urine Ketones (Stick) Negative mg/dL (NEG) Urine Blood Negative (NEG) Urine Nitrite Negative (NEG) Urine Bilirubin Negative (NEG) Urine Urobilinogen Dipstick 1.0 mg/dL (0.2 mg/dL) Urine Leukocyte Esterase Negative (NEG) Urine RBC 0 /HPF (0-2) Urine WBC Occ /HPF (0-4) Urine Squamous Epithelial Cells Mod /LPF Urine Bacteria 0 /HPF (0-FEW) Urine Mucus Marked /LPF Medications Current Medications Fentanyl Citrate (Fentanyl 2ml Vial) 50 mcg 1X ONCE IVP Last administered on 07/13/19at 15:07; Start 07/13/19 at 15:00; Stop 07/13/19 at 15:03; Status DC Orphenadrine Citrate (Norflex) 60 mg 1X ONCE IV Last administered on 07/13/19at 16:26; Start 07/13/19 at 15:45; Stop 07/13/19 at 15:46; Status DC Ketorolac Tromethamine (Toradol 30mg Vial) 30 mg 1X ONCE IVP Last administered on 07/13/19at 16:25; Start 07/13/19 at 15:45; Stop 07/13/19 at 15:46; Status DC Methylprednisolone Sodium Succinate (SOLU-Medrol 125MG VIAL) 125 mg 1X ONCE IV Last administered on 07/13/19at 16:26; Start 07/13/19 at 15:45; Stop 07/13/19 at 15:46; Status DC Hydromorphone HCl (Dilaudid) 1 mg 1X ONCE IV Last administered on 07/13/19at 17:27; Start 07/13/19 at 17:30; Stop 07/13/19 at 17:31; Status DC Ondansetron HCl (Zofran) 4 mg PRN Q8HRS PRN IV NAUSEA/VOMITING; Start 07/13/19 at 20:30; Stop 07/14/19 at 11:43; Status DC Hydromorphone HCl (Dilaudid) 0.5 mg PRN Q2HR PRN IV pain Last administered on 07/14/19at 19:58; Start 07/13/19 at 20:30; Stop 07/14/19 at 21:43; Status DC Nystatin (Mycostatin) 1 reyes TID TP Last administered on 07/15/19at 21:20; Start 07/14/19 at 11:00 Sodium Chloride (Normal Saline Flush) 3 ml QSHIFT PRN IV AFTER MEDS AND BLOOD DRAWS; Start 07/14/19 at 11:45 Sodium Chloride 1,000 ml @ 60 mls/hr [id number] IV Last administered on 07/16/19at 01:57; Start 07/14/19 at 12:00 Ondansetron HCl (Zofran) 4 mg PRN Q4HRS PRN IV NAUSEA/VOMITING; Start 07/14/19 at 11:45 Acetaminophen (Tylenol) 650 mg PRN Q4HRS PRN PO TEMP OVER 100.4F OR MILD PAIN; Start 07/14/19 at 11:45; Stop 07/14/19 at 11:46; Status DC Al Hydroxide/Mg Hydroxide (Mylanta Plus Xs) 30 ml PRN DAILY PRN PO HEARTBURN / GAS; Start 07/14/19 at 11:45 Clonidine HCl (Catapres) 0.1 mg PRN Q6HRS PRN PO SBP>160 OR DBP>90; Start 07/14/19 at 11:45 Docusate Sodium (Colace) 100 mg PRN BID PRN PO HARD STOOLS Last administered on 07/16/19at 01:50; Start 07/14/19 at 11:45 Albuterol Sulfate (Ventolin Neb Soln) 2.5 mg PRN Q4HRS PRN NEB SHORTNESS OF BREATH; Start 07/14/19 at 11:45 Guaifenesin (Robitussin) 200 mg PRN Q4HRS PRN PO COUGH; Start 07/14/19 at 11:45 Lorazepam (Ativan) 0.5 mg PRN Q4HRS PRN PO ANXIETY / AGITATION; Start 07/14/19 at 11:45 Enoxaparin Sodium (Lovenox 40mg Syringe) 40 mg Q12H SQ Last administered on 07/15/19at 21:15; Start 07/14/19 at 21:00 Acetaminophen (Tylenol) 1,000 mg PRN Q8HRS PRN PO MILD PAIN / TEMP Last administered on 07/14/19at 22:14; Start 07/14/19 at 11:45 Atorvastatin Calcium (Lipitor) 20 mg HS PO Last administered on 07/15/19at 21:15; Start 07/14/19 at 21:00 Cyclobenzaprine HCl (Flexeril) 10 mg TID PO Last administered on 07/15/19at 21:15; Start 07/14/19 at 14:00 Acetaminophen/ Hydrocodone Bitart (Lortab 5/325) 1 tab PRN Q6HRS PRN PO MODERATE TO SEVERE PAIN Last administered on 07/16/19at 01:49; Start 07/14/19 at 11:45 Metoprolol Tartrate (Lopressor) 12.5 mg BID PO Last administered on 07/15/19 21:20; Start 07/14/19 at 12:00 Lidocaine (Lidoderm) 1 patch DAILY TD ; Start 07/14/19 at 12:00 Naproxen (Naprosyn) 250 mg PRN Q4HRS PRN PO INFLAMMATION Last administered on 07/14/19at 22:14; Start 07/14/19 at 12:00 Miscellaneous (Lidoderm Patch Removal) 1 ea QHS MC Last administered on 07/15/19at 21:00; Start 07/14/19 at 21:00 Methylprednisolone (Medrol) 8 mg BID PO Last administered on 07/14/19at 21:34; Start 07/14/19 at 17:00; Stop 07/14/19 at 21:01; Status DC Methylprednisolone (Medrol) 4 mg BIDPCLD PO Last administered on 07/14/19at 17:35; Start 07/14/19 at 17:00; Stop 07/14/19 at 18:31; Status DC Methylprednisolone (Medrol) 4 mg TIDPC PO Last administered on 07/15/19at 17:34; Start 07/15/19 at 08:30; Stop 07/15/19 at 17:31; Status DC Methylprednisolone (Medrol) 8 mg QHS PO Last administered on 07/15/19at 21:15; Start 07/15/19 at 21:00; Stop 07/15/19 at 21:01; Status DC Methylprednisolone (Medrol) 4 mg QIDAFTMEAL PO ; Start 07/16/19 at 09:00; Stop 07/16/19 at 21:01 Methylprednisolone (Medrol) 4 mg TID PO ; Start 07/17/19 at 09:00; Stop 07/17/19 at 21:01 Methylprednisolone (Medrol) 4 mg BID PO ; Start 07/18/19 at 09:00; Stop 07/18/19 at 21:01 Methylprednisolone (Medrol) 4 mg DAILY PO ; Start 07/19/19 at 09:00; Stop 07/19/19 at 09:01 Fentanyl (Duragesic 25mcg/ Hr Patch) 1 patch Q3DAYS TD Last administered on 07/14/19at 16:31; Start 07/14/19 at 17:00 Pantoprazole Sodium (Protonix) 40 mg DAILYAC PO Last administered on 07/16/19at 06:25; Start 07/15/19 at 07:30 Hydromorphone HCl (Dilaudid) 1 mg PRN Q3HRS PRN IV SEVERE PAIN 7-10 Last administered on 07/16/19at 07:46; Start 07/14/19 at 21:45 Magnesium Hydroxide (Milk Of Magnesia) 2,400 mg PRN DAILY PRN PO CONSTIPATION Last administered on 07/16/19at 01:50; Start 07/15/19 at 12:15 Polyethylene Glycol (miraLAX PACKET) 17 gm DAILY PO Last administered on 07/15/19at 13:56; Start 07/15/19 at 13:00 Ceftriaxone Sodium (Rocephin) 1 gm Q24H IVP Last administered on 07/15/19at 16:01; Start 07/15/19 at 15:30 Active Scripts Active [place] 5-325 Tablet (Acetaminophen/Hydrocodone Bitart) 1 Each Tablet 1 Tab PO PRN Q6HRS PRN Medrol (Methylprednisolone) 4 Mg Tab.ds.pk 1 Pkg PO UD Cyclobenzaprine Hcl 10 Mg Tablet 1 Tab PO TID Cipro (Ciprofloxacin Hcl) 250 Mg Tablet 1 Tab PO BID Reported Aleve (Naproxen Sodium) 220 Mg Capsule 220 Mg PO PRN Q4HRS PRN Acetaminophen 500 Mg Tablet 2 Tab PO PRN Q8HRS PRN 15 Days Atorvastatin Calcium 20 Mg Tablet 20 Mg PO HS Metoprolol Tartrate 25 Mg Tablet 0.5 Tab PO BID Aspercreme (Lidocaine) 1 Each Adh..patch 1 Patch TP DAILY 30 Days Vitals/I & O Vital Sign - Last 24 Hours 07/15/19 07/15/19 07/15/19 07/15/19 10:11 11:00 11:34 11:35 Temp 97.3 97.3 Pulse 90 Resp 18 B/P (MAP) 164/86 (112) Pulse Ox 94 94 O2 Delivery Room Air Room Air Room Air Room Air 07/15/19 07/15/19 07/15/19 07/15/19 12:15 12:20 15:00 15:00 Temp 97.7 97.7 Pulse 90 Resp 18 B/P (MAP) 164/81 (108) Pulse Ox 91 O2 Delivery Room Air Room Air Room Air Room Air 07/15/19 07/15/19 07/15/19 07/15/19 15:30 17:34 18:40 19:20 Temp 97.5 97.5 Pulse 100 Resp 20 B/P (MAP) 155/92 (113) Pulse Ox 93 O2 Delivery Room Air Room Air Room Air Room Air 07/15/19 07/15/19 07/15/19 07/15/19 19:28 19:58 20:00 21:20 Pulse 100 Resp 20 B/P (MAP) 155/92 Pulse Ox 91 O2 Delivery Room Air Room Air Room Air 07/15/19 07/15/19 07/15/19 07/16/19 22:46 23:05 23:16 01:49 Temp 98.0 98.0 Pulse 90 Resp 18 20 20 B/P (MAP) 167/81 (109) Pulse Ox 93 91 92 94 O2 Delivery Room Air Room Air Room Air Room Air 07/16/19 07/16/19 07/16/19 07/16/19 01:50 02:20 02:49 03:23 Temp 98.1 98.1 Pulse 88 Resp 20 16 B/P (MAP) 162/86 (111) Pulse Ox 92 95 95 95 O2 Delivery Room Air Room Air Room Air Room Air 07/16/19 07/16/19 07/16/19 07/16/19 04:49 05:19 07:00 07:46 Temp 98.0 98.0 Pulse 86 Resp 20 20 18 B/P (MAP) 166/95 (118) Pulse Ox 95 95 96 O2 Delivery Room Air Room Air Room Air Room Air 07/16/19 07:51 O2 Delivery Room Air Intake and Output 07/15/19 07/15/19 07/16/19 15:00 23:00 07:00 Intake Total 180 ml 540 ml Output Total 150 ml 1000 ml 525 ml Balance -150 ml -820 ml 15 ml RED ALLEN MD Jul 16, 2019 08:55
[2019-07-16] MEDS ORDERED: HYDROmorphone 4 MG TABLET PO PRN (09:45)
--- NOTE | 2019-07-16 09:56 | PDOC ---
PROGRESS NOTES Subjective Subjective He admits continued low back pain interfering with mobility. Objective Objective Vital Signs Date Time Temp Pulse Resp B/P (MAP) Pulse Ox O2 Delivery O2 Flow Rate FiO2 07/16/19 08:50 86 166/95 07/16/19 08:49 Room Air 07/16/19 07:00 98.0 18 96 98.0 Intake and Output 07/16/19 07:00 Intake Total 720 ml Output Total 1675 ml Balance -955 ml Intake Oral 720 ml Output Urine Total 1675 ml Physical Exam Physical Exam He is alert,supine in bed and continues with painfully limited lumbar spine ROM and he requires help with bed mobility. Pain clinic could not give him lumbar INDIGO while in hospital. Assessment Assessment Problems Medical Problems: (1) Intractable low back pain Status: Acute (2) Sciatica Status: Acute Plan Plan of Care To d/c fentanyl patch and try oxycontin and dilaudid orally for breakthrough. He is not in a position to go home until his pain is controlled enough for him to get up and at least get around in wheel chair level. Comment Review of Relevant I have reviewed the following items luz maria (where applicable) has been applied. Labs Laboratory Tests Test 07/14/19 17:20 Urine Collection Type Unknown Urine Color Yellow Urine Clarity Clear Urine pH 6.0 Urine Specific [place] 1.025 Urine Protein Negative mg/dL (NEG-TRACE) Urine Glucose (UA) Negative mg/dL (NEG) Urine Ketones (Stick) Negative mg/dL (NEG) Urine Blood Negative (NEG) Urine Nitrite Negative (NEG) Urine Bilirubin Negative (NEG) Urine Urobilinogen Dipstick 1.0 mg/dL (0.2 mg/dL) Urine Leukocyte Esterase Negative (NEG) Urine RBC 0 /HPF (0-2) Urine WBC Occ /HPF (0-4) Urine Squamous Epithelial Cells Mod /LPF Urine Bacteria 0 /HPF (0-FEW) Urine Mucus Marked /LPF Medications Current Medications Fentanyl Citrate (Fentanyl 2ml Vial) 50 mcg 1X ONCE IVP Last administered on 07/13/19at 15:07; Start 07/13/19 at 15:00; Stop 07/13/19 at 15:03; Status DC Orphenadrine Citrate (Norflex) 60 mg 1X ONCE IV Last administered on 07/13/19at 16:26; Start 07/13/19 at 15:45; Stop 07/13/19 at 15:46; Status DC Ketorolac Tromethamine (Toradol 30mg Vial) 30 mg 1X ONCE IVP Last administered on 07/13/19at 16:25; Start 07/13/19 at 15:45; Stop 07/13/19 at 15:46; Status DC Methylprednisolone Sodium Succinate (SOLU-Medrol 125MG VIAL) 125 mg 1X ONCE IV Last administered on 07/13/19at 16:26; Start 07/13/19 at 15:45; Stop 07/13/19 at 15:46; Status DC Hydromorphone HCl (Dilaudid) 1 mg 1X ONCE IV Last administered on 07/13/19at 17:27; Start 07/13/19 at 17:30; Stop 07/13/19 at 17:31; Status DC Ondansetron HCl (Zofran) 4 mg PRN Q8HRS PRN IV NAUSEA/VOMITING; Start 07/13/19 at 20:30; Stop 07/14/19 at 11:43; Status DC Hydromorphone HCl (Dilaudid) 0.5 mg PRN Q2HR PRN IV pain Last administered on 07/14/19at 19:58; Start 07/13/19 at 20:30; Stop 07/14/19 at 21:43; Status DC Nystatin (Mycostatin) 1 reyes TID TP Last administered on 07/16/19at 08:53; Start 07/14/19 at 11:00 Sodium Chloride (Normal Saline Flush) 3 ml QSHIFT PRN IV AFTER MEDS AND BLOOD DRAWS; Start 07/14/19 at 11:45 Sodium Chloride 1,000 ml @ 60 mls/hr [id number] IV Last administered on 07/16/19at 01:57; Start 07/14/19 at 12:00 Ondansetron HCl (Zofran) 4 mg PRN Q4HRS PRN IV NAUSEA/VOMITING; Start 07/14/19 at 11:45 Acetaminophen (Tylenol) 650 mg PRN Q4HRS PRN PO TEMP OVER 100.4F OR MILD PAIN; Start 07/14/19 at 11:45; Stop 07/14/19 at 11:46; Status DC Al Hydroxide/Mg Hydroxide (Mylanta Plus Xs) 30 ml PRN DAILY PRN PO HEARTBURN / GAS; Start 07/14/19 at 11:45 Clonidine HCl (Catapres) 0.1 mg PRN Q6HRS PRN PO SBP>160 OR DBP>90; Start 07/14/19 at 11:45 Docusate Sodium (Colace) 100 mg PRN BID PRN PO HARD STOOLS Last administered on 07/16/19at 01:50; Start 07/14/19 at 11:45 Albuterol Sulfate (Ventolin Neb Soln) 2.5 mg PRN Q4HRS PRN NEB SHORTNESS OF BREATH; Start 07/14/19 at 11:45 Guaifenesin (Robitussin) 200 mg PRN Q4HRS PRN PO COUGH; Start 07/14/19 at 11:45 Lorazepam (Ativan) 0.5 mg PRN Q4HRS PRN PO ANXIETY / AGITATION; Start 07/14/19 at 11:45 Enoxaparin Sodium (Lovenox 40mg Syringe) 40 mg Q12H SQ Last administered on 07/16/19at 08:50; Start 07/14/19 at 21:00 Acetaminophen (Tylenol) 1,000 mg PRN Q8HRS PRN PO MILD PAIN / TEMP Last administered on 07/14/19at 22:14; Start 07/14/19 at 11:45 Atorvastatin Calcium (Lipitor) 20 mg HS PO Last administered on 07/15/19at 21:15; Start 07/14/19 at 21:00 Cyclobenzaprine HCl (Flexeril) 10 mg TID PO Last administered on 07/16/19at 08:49; Start 07/14/19 at 14:00 Acetaminophen/ Hydrocodone Bitart (Lortab 5/325) 1 tab PRN Q6HRS PRN PO MODERATE TO SEVERE PAIN Last administered on 07/16/19at 01:49; Start 07/14/19 at 11:45 Metoprolol Tartrate (Lopressor) 12.5 mg BID PO Last administered on 07/16/19at 08:50; Start 07/14/19 at 12:00 Lidocaine (Lidoderm) 1 patch DAILY TD ; Start 07/14/19 at 12:00 Naproxen (Naprosyn) 250 mg PRN Q4HRS PRN PO INFLAMMATION Last administered on 07/14/19at 22:14; Start 07/14/19 at 12:00 Miscellaneous (Lidoderm Patch Removal) 1 ea QHS MC Last administered on 07/15/19at 21:00; Start 07/14/19 at 21:00 Methylprednisolone (Medrol) 8 mg BID PO Last administered on 07/14/19at 21:34; Start 07/14/19 at 17:00; Stop 07/14/19 at 21:01; Status DC Methylprednisolone (Medrol) 4 mg BIDPCLD PO Last administered on 07/14/19at 17:35; Start 07/14/19 at 17:00; Stop 07/14/19 at 18:31; Status DC Methylprednisolone (Medrol) 4 mg TIDPC PO Last administered on 07/15/19at 17:34; Start 07/15/19 at 08:30; Stop 07/15/19 at 17:31; Status DC Methylprednisolone (Medrol) 8 mg QHS PO Last administered on 07/15/19at 21:15; Start 07/15/19 at 21:00; Stop 07/15/19 at 21:01; Status DC Methylprednisolone (Medrol) 4 mg QIDAFTMEAL PO Last administered on 07/16/19at 08:49; Start 07/16/19 at 09:00; Stop 07/16/19 at 21:01 Methylprednisolone (Medrol) 4 mg TID PO ; Start 07/17/19 at 09:00; Stop 07/17/19 at 21:01 Methylprednisolone (Medrol) 4 mg BID PO ; Start 07/18/19 at 09:00; Stop 07/18/19 at 21:01 Methylprednisolone (Medrol) 4 mg DAILY PO ; Start 07/19/19 at 09:00; Stop 07/19/19 at 09:01 Fentanyl (Duragesic 25mcg/ Hr Patch) 1 patch Q3DAYS TD Last administered on 07/14/19at 16:31; Start 07/14/19 at 17:00 Pantoprazole Sodium (Protonix) 40 mg DAILYAC PO Last administered on 07/16/19at 06:25; Start 07/15/19 at 07:30 Hydromorphone HCl (Dilaudid) 1 mg PRN Q3HRS PRN IV SEVERE PAIN 7-10 Last administered on 07/16/19at 07:46; Start 07/14/19 at 21:45 Magnesium Hydroxide (Milk Of Magnesia) 2,400 mg PRN DAILY PRN PO CONSTIPATION Last administered on 07/16/19at 01:50; Start 07/15/19 at 12:15 Polyethylene Glycol (miraLAX PACKET) 17 gm DAILY PO Last administered on 07/16/19at 08:49; Start 07/15/19 at 13:00 Ceftriaxone Sodium (Rocephin) 1 gm Q24H IVP Last administered on 07/15/19at 16:01; Start 07/15/19 at 15:30 Active Scripts Active [place] 5-325 Tablet (Acetaminophen/Hydrocodone Bitart) 1 Each Tablet 1 Tab PO PRN Q6HRS PRN Medrol (Methylprednisolone) 4 Mg Tab.ds.pk 1 Pkg PO UD Cyclobenzaprine Hcl 10 Mg Tablet 1 Tab PO TID Cipro (Ciprofloxacin Hcl) 250 Mg Tablet 1 Tab PO BID Reported Aleve (Naproxen Sodium) 220 Mg Capsule 220 Mg PO PRN Q4HRS PRN Acetaminophen 500 Mg Tablet 2 Tab PO PRN Q8HRS PRN 15 Days Atorvastatin Calcium 20 Mg Tablet 20 Mg PO HS Metoprolol Tartrate 25 Mg Tablet 0.5 Tab PO BID Aspercreme (Lidocaine) 1 Each Adh..patch 1 Patch TP DAILY 30 Days Vitals/I & O Vital Sign - Last 24 Hours 07/15/19 07/15/19 07/15/19 07/15/19 10:11 11:00 11:34 11:35 Temp 97.3 97.3 Pulse 90 Resp 18 B/P (MAP) 164/86 (112) Pulse Ox 94 94 O2 Delivery Room Air Room Air Room Air Room Air 07/15/19 07/15/19 07/15/19 07/15/19 12:15 12:20 15:00 15:00 Temp 97.7 97.7 Pulse 90 Resp 18 B/P (MAP) 164/81 (108) Pulse Ox 91 O2 Delivery Room Air Room Air Room Air Room Air 07/15/19 07/15/19 07/15/19 07/15/19 15:30 17:34 18:40 19:20 Temp 97.5 97.5 Pulse 100 Resp 20 B/P (MAP) 155/92 (113) Pulse Ox 93 O2 Delivery Room Air Room Air Room Air Room Air 07/15/19 07/15/19 07/15/1907/15/20 19:28 19:58 20:00 21:20 Pulse 100 Resp 20 B/P (MAP) 155/92 Pulse Ox 91 O2 Delivery Room Air Room Air Room Air 07/15/19 07/15/19 07/15/19 07/16/19 22:46 23:05 23:16 01:49 Temp 98.0 98.0 Pulse 90 Resp 20 20 B/P (MAP) 167/81 (109) Pulse Ox 93 91 92 94 O2 Delivery Room Air Room Air Room Air Room Air 07/16/19 07/16/19 07/16/19 07/16/19 01:50 02:20 02:49 03:23 Temp 98.1 98.1 Pulse 88 Resp 20 20 16 B/P (MAP) 162/86 (111) Pulse Ox 92 95 95 95 O2 Delivery Room Air Room Air Room Air Room Air 07/16/19 07/16/19 07/16/19 07/16/19 04:49 05:19 07:00 07:46 Temp 98.0 98.0 Pulse 86 Resp 20 20 18 B/P (MAP) 166/95 (118) Pulse Ox 95 95 96 O2 Delivery Room Air Room Air Room Air Room Air 07/16/19 07/16/19 07/16/19 07:51 08:49 08:50 Pulse 86 B/P (MAP) 166/95 O2 Delivery Room Air Room Air Intake and Output 07/15/19 07/15/19 07/16/19 15:00 23:00 07:00 Intake Total 180 ml 540 ml Output Total 150 ml 1000 ml 525 ml Balance -150 ml -820 ml 15 ml FERNIE MARTINO MD Jul 16, 2019 09:56
[2019-07-16] MEDS ORDERED: oxyCODONE ER 15 MG TAB.ER.12H PO SCH (10:00)
--- NOTE | 2019-07-16 10:00 | PDOC3 ---
Discharge Summary Date of Admission: Jul 13, 2019 Date of Discharge: Jul 16, 2019 Follow-Up: 1-2 days Admitting Diagnosis comment: VTE Prophylaxis Ordered VTE Prophylaxis Devices: No VTE Pharmacological Prophylaxi: Yes Assessment/Plan Assessment/Plan IMPRESSION: FAILED OUT PATIENT MANAGEMENT intractable low back pain with lumbar radiculopathy Bilateral spondylolysis with grade 2 anterolisthesis and marked neuroforaminal stenosis at L4-5. lumbar degenerative disc disease greatest at L4-5 and L5-S1. morbid obesity plan admit iv pain control consult pain management DR MARTINO FOLLOWING PT/OT DVT PROPHYLAXIS pain clinic for lumbar INDIGO to help ease his pain. To assisted living facility when his pain is better controlled. d/c planning 36 min Discharge Recommendations * [facility] * * PAIN NOT MUCH IMPROVED WITH ACTIVITY * * * Premedicated PT PAIN COMMENTS * Pt pain 5/10 at start of session and incr after activity to 8/10 Supine to Sit Assistance Required * Mod Assistance Bed Mobility Comments * pt with difficulty scooting hips to EOB Vitals Vitals Vital Signs Date Time Temp Pulse Resp B/P (MAP) Pulse Ox O2 Delivery O2 Flow Rate FiO2 07/16/19 07:51 Room Air 07/16/19 07:00 98.0 86 18 166/95 (118) 96 98.0 Physical Exam General: Alert, Oriented X3, Cooperative, No acute distress, mild distress Heart: Regular rate, Normal S1 Lungs: Clear Abdomen: Normal bowel sounds, Soft, No hepatosplenomegaly Extremities: No cyanosis Skin: No significant lesion Labs LABS safe return to assisted living. Unsure if pt will agree to SNU stay Patient Stated Goal * return home. Rehab Potential to Achieve Goals * Good Learning Preferences * One-on-One Instruction * Demonstration * Discussion Problem List (body system elements) * Impaired fnctnl mobility * Strength * Obesity * Balance * Knowledge-Body Mechanics * Coordination * Knowledge-safe techniques * Pain Clinical Presentation * Evolving Evaluation Complexity Level * Moderate Complexity Pt/caregiver agrees with plan of care/goals * Yes Patient condition at conclusion of therapy * Pt in chair * Call light in reach * Phone in reach * PtIn no apparent distress * Pt denies further needs Communicated Patient Care With (Name, Title) * Bianca RN; Michelle OT Goal 1 - Bed Mobility Assistance Required * Independent Goal 1 Assessment * Appropriate - Continue Goal 2 - Transfers Assistance Required * Independent Goal 2 - Transfer Type * Stand-Pivot Goal 2 Assessment * Appropriate - Continue Treatment Plan * Therapeutic Exercise * Bed Mobility Training * Transfer training * Dynamic Balance Training Frequency of Treatment Expected * 6 visits/week Duration of Treatment Expected * 2 weeks Discharge Recommendations * [facility]irement Unit Discharge Recommendation Comments * Will continue to assess for discharge needs FINAL DIAGNOSIS Problems Medical Problems: (1) Intractable low back pain Status: Acute (2) Sciatica Status: Acute Brief Hospital Course Mr. Sullivan is a 69 old [sex] who presented with [ intractable low back pain, sciatica, gait instability] CONDITION AT DISCHARGE: Stable Discharge Medications Current Medications Fentanyl Citrate (Fentanyl 2ml Vial) 50 mcg 1X ONCE IVP Last administered on 07/13/19at 15:07; Start 07/13/19 at 15:00; Stop 07/13/19 at 15:03; Status DC Orphenadrine Citrate (Norflex) 60 mg 1X ONCE IV Last administered on 07/13/19at 16:26; Start 07/13/19 at 15:45; Stop 07/13/19 at 15:46; Status DC Ketorolac Tromethamine (Toradol 30mg Vial) 30 mg 1X ONCE IVP Last administered on 07/13/19at 16:25; Start 07/13/19 at 15:45; Stop 07/13/19 at 15:46; Status DC Methylprednisolone Sodium Succinate (SOLU-Medrol 125MG VIAL) 125 mg 1X ONCE IV Last administered on 07/13/19at 16:26; Start 07/13/19 at 15:45; Stop 07/13/19 at 15:46; Status DC Hydromorphone HCl (Dilaudid) 1 mg 1X ONCE IV Last administered on 07/13/19at 17:27; Start 07/13/19 at 17:30; Stop 07/13/19 at 17:31; Status DC Ondansetron HCl (Zofran) 4 mg PRN Q8HRS PRN IV NAUSEA/VOMITING; Start 07/13/19 at 20:30; Stop 07/14/19 at 11:43; Status DC Hydromorphone HCl (Dilaudid) 0.5 mg PRN Q2HR PRN IV pain Last administered on 07/14/19at 19:58; Start 07/13/19 at 20:30; Stop 07/14/19 at 21:43; Status DC Nystatin (Mycostatin) 1 reyes TID TP Last administered on 07/16/19at 08:53; Start 07/14/19 at 11:00 Sodium Chloride (Normal Saline Flush) 3 ml QSHIFT PRN IV AFTER MEDS AND BLOOD DRAWS; Start 07/14/19 at 11:45 Sodium Chloride 1,000 ml @ 60 mls/hr [id number] IV Last administered on 07/16/19at 01:57; Start 07/14/19 at 12:00 Ondansetron HCl (Zofran) 4 mg PRN Q4HRS PRN IV NAUSEA/VOMITING; Start 07/14/19 at 11:45 Acetaminophen (Tylenol) 650 mg PRN Q4HRS PRN PO TEMP OVER 100.4F OR MILD PAIN; Start 07/14/19 at 11:45; Stop 07/14/19 at 11:46; Status DC Al Hydroxide/Mg Hydroxide (Mylanta Plus Xs) 30 ml PRN DAILY PRN PO HEARTBURN / GAS; Start 07/14/19 at 11:45 Clonidine HCl (Catapres) 0.1 mg PRN Q6HRS PRN PO SBP>160 OR DBP>90; Start 07/14/19 at 11:45 Docusate Sodium (Colace) 100 mg PRN BID PRN PO HARD STOOLS Last administered on 07/16/19at 01:50; Start 07/14/19 at 11:45 Albuterol Sulfate (Ventolin Neb Soln) 2.5 mg PRN Q4HRS PRN NEB SHORTNESS OF BREATH; Start 07/14/19 at 11:45 Guaifenesin (Robitussin) 200 mg PRN Q4HRS PRN PO COUGH; Start 07/14/19 at 11:45 Lorazepam (Ativan) 0.5 mg PRN Q4HRS PRN PO ANXIETY / AGITATION; Start 07/14/19 at 11:45 Enoxaparin Sodium (Lovenox 40mg Syringe) 40 mg Q12H SQ Last administered on 07/16/19at 08:50; Start 07/14/19 at 21:00 Acetaminophen (Tylenol) 1,000 mg PRN Q8HRS PRN PO MILD PAIN / TEMP Last administered on 07/14/19at 22:14; Start 07/14/19 at 11:45 Atorvastatin Calcium (Lipitor) 20 mg HS PO Last administered on 07/15/19at 21:15; Start 07/14/19 at 21:00 Cyclobenzaprine HCl (Flexeril) 10 mg TID PO Last administered on 07/16/19at 08:49; Start 07/14/19 at 14:00 Acetaminophen/ Hydrocodone Bitart (Lortab 5/325) 1 tab PRN Q6HRS PRN PO MODERATE TO SEVERE PAIN Last administered on 07/16/19at 01:49; Start 07/14/19 at 11:45 Metoprolol Tartrate (Lopressor) 12.5 mg BID PO Last administered on 07/16/19at 08:50; Start 07/14/19 at 12:00 Lidocaine (Lidoderm) 1 patch DAILY TD ; Start 07/14/19 at 12:00 Naproxen (Naprosyn) 250 mg PRN Q4HRS PRN PO INFLAMMATION Last administered on 07/14/19at 22:14; Start 07/14/19 at 12:00 Miscellaneous (Lidoderm Patch Removal) 1 ea QHS MC Last administered on 07/15/19at 21:00; Start 07/14/19 at 21:00 Methylprednisolone (Medrol) 8 mg BID PO Last administered on 07/14/19at 21:34; Start 07/14/19 at 17:00; Stop 07/14/19 at 21:01; Status DC Methylprednisolone (Medrol) 4 mg BIDPCLD PO Last administered on 07/14/19at 17:35; Start 07/14/19 at 17:00; Stop 07/14/19 at 18:31; Status DC Methylprednisolone (Medrol) 4 mg TIDPC PO Last administered on 07/15/19at 17:34; Start 07/15/19 at 08:30; Stop 07/15/19 at 17:31; Status DC Methylprednisolone (Medrol) 8 mg QHS PO Last administered on 07/15/19at 21:15; Start 07/15/19 at 21:00; Stop 07/15/19 at 21:01; Status DC Methylprednisolone (Medrol) 4 mg QIDAFTMEAL PO Last administered on 07/16/19at 08:49; Start 07/16/19 at 09:00; Stop 07/16/19 at 21:01 Methylprednisolone (Medrol) 4 mg TID PO ; Start 07/17/19 at 09:00; Stop 07/17/19 at 21:01 Methylprednisolone (Medrol) 4 mg BID PO ; Start 07/18/19 at 09:00; Stop 07/18/19 at 21:01 Methylprednisolone (Medrol) 4 mg DAILY PO ; Start 07/19/19 at 09:00; Stop 07/19/19 at 09:01 Fentanyl (Duragesic 25mcg/ Hr Patch) 1 patch Q3DAYS TD Last administered on 07/14/19at 16:31; Start 07/14/19 at 17:00; Stop 07/16/19 at 09:52; Status DC Pantoprazole Sodium (Protonix) 40 mg DAILYAC PO Last administered on 07/16/19at 06:25; Start 07/15/19 at 07:30 Hydromorphone HCl (Dilaudid) 1 mg PRN Q3HRS PRN IV SEVERE PAIN 7-10 Last administered on 07/16/19at 07:46; Start 07/14/19 at 21:45 Magnesium Hydroxide (Milk Of Magnesia) 2,400 mg PRN DAILY PRN PO CONSTIPATION Last administered on 07/16/19at 01:50; Start 07/15/19 at 12:15 Polyethylene Glycol (miraLAX PACKET) 17 gm DAILY PO Last administered on 07/16/19at 08:49; Start 07/15/19 at 13:00 Ceftriaxone Sodium (Rocephin) 1 gm Q24H IVP Last administered on 07/15/19at 16:01; Start 07/15/19 at 15:30 Oxycodone HCl (OxyCONTIN) 15 mg Q12HR PO ; Start 07/16/19 at 10:00 Hydromorphone HCl (Dilaudid) 4 mg PRN Q4HRS PRN PO SEVERE BREAKTHROUG PAIN; Start 07/16/19 at 09:45 Active Scripts Active [place] 5-325 Tablet (Acetaminophen/Hydrocodone Bitart) 1 Each Tablet 1 Tab PO PRN Q6HRS PRN Medrol (Methylprednisolone) 4 Mg Tab.ds.pk 1 Pkg PO UD Cyclobenzaprine Hcl 10 Mg Tablet 1 Tab PO TID Cipro (Ciprofloxacin Hcl) 250 Mg Tablet 1 Tab PO BID Reported Aleve (Naproxen Sodium) 220 Mg Capsule 220 Mg PO PRN Q4HRS PRN Acetaminophen 500 Mg Tablet 2 Tab PO PRN Q8HRS PRN 15 Days Atorvastatin Calcium 20 Mg Tablet 20 Mg PO HS Metoprolol Tartrate 25 Mg Tablet 0.5 Tab PO BID Aspercreme (Lidocaine) 1 Each Adh..patch 1 Patch TP DAILY 30 Days Vital Signs Vital Signs Date Time Temp Pulse Resp B/P (MAP) Pulse Ox O2 Delivery O2 Flow Rate FiO2 07/16/19 08:50 86 166/95 07/16/19 08:49 Room Air 07/16/19 07:00 98.0 18 96 98.0 Labs Laboratory Tests Test 07/14/19 17:20 Urine Collection Type Unknown Urine Color Yellow Urine Clarity Clear Urine pH 6.0 Urine Specific [place] 1.025 Urine Protein Negative mg/dL (NEG-TRACE) Urine Glucose (UA) Negative mg/dL (NEG) Urine Ketones (Stick) Negative mg/dL (NEG) Urine Blood Negative (NEG) Urine Nitrite Negative (NEG) Urine Bilirubin Negative (NEG) Urine Urobilinogen Dipstick 1.0 mg/dL (0.2 mg/dL) Urine Leukocyte Esterase Negative (NEG) Urine RBC 0 /HPF (0-2) Urine WBC Occ /HPF (0-4) Urine Squamous Epithelial Cells Mod /LPF Urine Bacteria 0 /HPF (0-FEW) Urine Mucus Marked /LPF Allergies Allergies Coded Allergies Type Severity Reaction Last Updated Verified No Known Drug Allergies 07/12/19 No Disposition/Orders: Other (d/c to SNF BED) RED ALLEN MD Jul 16, 2019 10:00
[2019-07-16] MEDS ORDERED: POLY17PO28 PO (10:07)
[2019-07-16] MEDS ORDERED: DOCU-153 PO (10:07)
[2019-07-16] MEDS ORDERED: PANT40TA77 PO (10:07)
[2019-07-16] MEDS ORDERED: MAG30ORA2 PO (10:07)
[2019-07-16] MEDS ORDERED: MAGN400O7 PO (10:07)
[2019-07-16] MEDS ORDERED: NYST15CR TP (10:07)
[2019-07-16] MEDS ORDERED: OXYC15TA61 PO (10:07)
[2019-07-16] MEDS ORDERED: CLON0.1T12 PO (10:07)
[2019-07-16] MEDS ORDERED: HYDR4TAB45 PO (10:07)
--- NOTE | 2019-07-16 10:10 | SNU/HH DC ---
DISCHARGE ORDERS DISCHARGE INFORMATION: FINAL DIAGNOSIS Problems Medical Problems: (1) Intractable low back pain Status: Acute (2) Sciatica Status: Acute CONDITION ON DISCHARGE: Stable CODE STATUS: Code Status: Full RESIDENTIAL: SNF STAY <30 DAYS: Yes HOSPICE: HOSPICE: No HOSPICE EVAL & TREAT: No LTAC: ADMIT TO LTAC: No POST DISCHARGE ORDERS: ACTIVITY ORDERS: Activity as tolerated DIET AFTER DISCHARGE: Cardiac CHECKS AFTER DISCHARGE: CHECKS AFTER DISCHARGE: Check blood press - daily TREATMENT/EQUIPMENT ORDERS: ADAPTIVE EQUIPMENT NEEDED: Front wheeled walker, Raised toilet seat w/arms, Pelletizer Operator, Wheelchair Physical Therapy For: Evalulation/Treatment Occupational Therapy For: Evaluation/Treatment Speech Language Pathology For: Evaluation/Treatment DISCHARGE MEDICATIONS: Home Meds Active Scripts Nystatin (NYSTATIN) 15 Gm Cream..g., 1 POPPY TP TID for RASH for 14 Days, #42 EACH Prov:RED ALLEN MD 07/16/19 Pantoprazole Sodium (PANTOPRAZOLE SODIUM ) 40 Mg Tablet.dr, 40 MG PO DAILYAC for GERD for 30 Days, #30 TAB.SR Prov:RED ALLEN MD 07/16/19 Polyethylene Glycol 3350 (POLYETHYLENE GLYCOL 3350) 17 Gm Powd.pack, 17 GM PO DAILY for PREVENT CONSTIPATION for 30 Days, #30 PKT Prov:RED ALLEN MD 07/16/19 Magnesium Hydroxide (MILK OF MAGNESIA) 400 Mg/5 Ml Oral.susp, 2400 MG PO PRN DAILY PRN for CONSTIPATION for 30 Days, #120 MISC Prov:RED ALLEN MD 07/16/19 Docusate Sodium (DOK) 100 Mg Capsule, 100 MG PO PRN BID PRN for HARD STOOLS for 30 Days, #60 CAP Prov:RED ALLEN MD 07/16/19 Mag Hydrox/Al Hydrox/Simeth (MAG-AL PLUS XS SUSPENSION) 30 Ml Oral.susp, 30 ML PO PRN DAILY PRN for HEARTBURN / GAS for 10 Days, #120 MISC Prov:RED ALLEN MD 07/16/19 Oxycodone HCl (Oxycontin) 15 Mg Tab.er.12h, 15 MG PO Q12HR for SEVERE PAIN for 14 Days, #28 TAB.SR Prov:RED ALLEN MD 07/16/19 Hydromorphone Hcl (DILAUDID) 4 Mg Tablet, 4 MG PO PRN Q4HRS PRN for SEVERE BREAKTHROUG PAIN for 10 Days, #30 TAB Prov:RED ALLEN MD 07/16/19 Clonidine Hcl (CATAPRES) 0.1 Mg Tablet, 0.1 MG PO PRN Q6HRS PRN for SBP>160 OR DBP>90 for 30 Days, #20 TAB Prov:RED ALLEN MD 07/16/19 Hydrocodone/Apap 5-325 (NORCO 5-325 TABLET) 1 Each Tablet, 1 TAB PO PRN Q6HRS PRN for PAIN, #14 TAB 0 Refills Prov:CHAZ RHOADES MD 07/12/19 Methylprednisolone (MEDROL) 4 Mg Tab.ds.pk, 1 PKG PO UD for inflammation, #1 PKG Prov:CHAZ RHOADES MD 07/12/19 Cyclobenzaprine Hcl (CYCLOBENZAPRINE HCL) 10 Mg Tablet, 1 TAB PO TID, #21 TAB Prov:CHAZ RHOADES MD 07/12/19 Reported Medications Naproxen Sodium (ALEVE) 220 Mg Capsule, 220 MG PO PRN Q4HRS PRN for PAIN, CAP 07/14/19 Acetaminophen (ACETAMINOPHEN) 500 Mg Tablet, 2 TAB PO PRN Q8HRS PRN for pain or fever for 15 Days, #60 TAB 0 Refills 07/14/19 Atorvastatin Calcium (ATORVASTATIN CALCIUM) 20 Mg Tablet, 20 MG PO HS for FOR CHOLESTEROL, #30 TAB 0 Refills 07/14/19 Metoprolol Tartrate (METOPROLOL TARTRATE) 25 Mg Tablet, 0.5 TAB PO BID for htn, #180 TAB 1 Refill 07/14/19 Lidocaine (Aspercreme) 1 Each Adh..patch, 1 PATCH TP DAILY for knee pain for 30 Days, #30 PATCH 0 Refills 07/14/19 Discontinued Scripts Ciprofloxacin Hcl (CIPRO) 250 Mg Tablet, 1 TAB PO BID for infection, #14 TAB Prov:CHAZ RHOADES MD 07/12/19 RED ALLEN MD Jul 16, 2019 10:09
--- NOTE | 2019-07-16 10:48 | NUR ---
Dr. Troy notified of BP R arm 188/109, and L arm 209/99, verbal orders received.
[2019-07-16] MEDS ORDERED: hydrALAZINE 20 MG/ML VIAL. IVP PRN (11:00)
[2019-07-16 11:12] VITALS: BP 188/109
--- NOTE | 2019-07-16 13:39 | NUR ---
SW following. Discussed with RN, SW met with pt to discuss discharge planning. PT/OT recommending SNU. Pt agreeable and wanted SW to speak with his Marie. SW spoked with Marie, she didn't have a preference as she did not know which place is good and which place is not. SW questioned [facility], stating it is nearby, has private rooms and people want to return who have been before. Pt agreeable. SW phoned and faxed referral. Pt accepted at [facility]. Transportation set up for between [id number] with [facility] due to Ford van being broken. RN notified. RN notifying family. No further SW needs.
--- NOTE | 2019-07-16 14:43 | NUR ---
Pt's notified of transfer to [facility] today. notified that Ye with the pain clinic was notified of need for appt.
[2019-07-16 15:07] VITALS: BP 178/99
--- NOTE | 2019-07-16 15:30 | NUR ---
Pt. discharged to via per transportation. with pt.
[2019-07-17] MEDS ORDERED: methylPREDNISolone 4 MG TABLET. PO SCH (09:00)
[2019-07-18] MEDS ORDERED: methylPREDNISolone 4 MG TABLET. PO SCH (09:00)
[2019-07-19] MEDS ORDERED: methylPREDNISolone 4 MG TABLET. PO SCH (09:00)
[2019-07-20 15:11] LABS: HLA B27 RESULT Negative (.)
== END 2019-07-16 15:30 | DRG 552 ==
LOC: ER 14:19 → 4 NORTH 20:26
PROVIDERS: ADMIT Family Medicine; ATTEND Family Medicine
DX: M48.061 Spinal stenosis, lumbar region without neurogenic claudication (principal); Z68.42 Body mass index [BMI] 45.0-49.9, adult; M51.16 Intervertebral disc disorders with radiculopathy, lumbar region; M51.17 Intervertebral disc disorders with radiculopathy, lumbosacral region; I10 Essential (primary) hypertension; E78.00 Pure hypercholesterolemia, unspecified; M47.26 Other spondylosis with radiculopathy, lumbar region; E66.01 Morbid (severe) obesity due to excess calories; M17.0 Bilateral primary osteoarthritis of knee; K59.00 Constipation, unspecified; Z99.3 Dependence on wheelchair; Z82.49 Family history of ischemic heart disease and other diseases of the circulatory system
CPT/HCPCS: 36415; 72148; 80048; 81001; 85025; 86812; 96374; 96375; J0360; J0696; J1170; J1650; J1885; J2360; J2930; J3010; J7030; J7509; 97535; 99285-25; G0378

== ENCOUNTER → 2019-07-28 | Outpatient (CLI) | payer MEDICARE ==
[2019-07-16 15:07] VITALS: BP 178/99
[~2019-07-28] MED LIST changes: +ACET500T68 PO; +ATOR20TA58 PO; +CLON0.1T12 PO; +DOCU-153 PO; +HYDR4TAB45 PO; +LIDO1ADH44 TP; +MAG30ORA2 PO; +MAGN400O7 PO; +METO25TA4 PO; +NAPR220C4 PO; +NYST15CR TP; +OXYC15TA61 PO; +PANT40TA77 PO; +POLY17PO28 PO
[2019-07-28 06:51] LABS: BASO % 1 % (0-3); EOS # 0.2 x10^3/uL (0.0-0.7); EOS % 4 % (0-3); HEMATOCRIT 42.7 % (39.0-53.0); HEMOGLOBIN 14.6 g/dL (13.0-17.5); LYMPH # 1.2 x10^3/uL (1.0-4.8); LYMPH % 19 % (24-48); MEAN CORPUSCULAR HEMOGLOBIN 33 pg (25-35); MEAN CORPUSCULAR HGB CONC 34 g/dL (31-37); MEAN CORPUSCULAR VOLUME 96 fL (79-100); MONO # 0.5 x10^3/uL (0.0-1.1); MONO % 7 % (0-9); NEUT # 4.4 x10^3/uL (1.8-7.7); NEUT % 69 % (31-73); PLATELET COUNT 232 x10^3/uL (140-400); RED BLOOD COUNT 4.47 x10^6/uL (4.30-5.70); WHITE BLOOD COUNT 6.4 x10^3/uL (4.0-11.0)
[2019-07-28 07:26] LABS: ALBUMIN/GLOBULIN RATIO 0.9 (1.0-1.7); CALCIUM 8.9 mg/dL (8.5-10.1); CREATININE 0.7 mg/dL (0.7-1.3); GFR 111.5; POTASSIUM 4.3 mmol/L (3.5-5.1); TOTAL BILIRUBIN 0.6 mg/dL (0.2-1.0); TOTAL PROTEIN 6.3 g/dL (6.4-8.2)
== END | disposition home or self-care (01) ==
LOC: SPEC 00:04 → EDSTATUS 07-29 12:45
PROVIDERS: ATTEND Internal Medicine
DX: B96.20 Unspecified Escherichia coli [E. coli] as the cause of diseases classified elsewhere (principal)
CPT/HCPCS: 36415; 80053; 84134; 85025

== ENCOUNTER → 2019-07-28 | Outpatient (CLI) | payer MEDICARE ==
[2019-07-16 15:07] VITALS: BP 178/99
[~2019-07-28] MED LIST changes: +IOHEXOL 180 MG/ML 10 ML VIAL. ONE; +methylPREDNISolone ACETATE 40 MG/ML VIAL. ONE; +methylPREDNISolone ACETATE 80 MG/ML VIAL. ONE
--- NOTE | 2019-07-29 00:56 | PAIN ---
DATE OF SERVICE: 07/28/2019 INITIAL CONSULTATION FOR PAIN CLINIC CHIEF COMPLAINT: Low back and left lower extremity pain. HISTORY OF PRESENT ILLNESS: This is a 69-year-old male who presents with history of pain for many years in the low back and left hip, worse over the past 1 year, increasing with activity, standing, walking to the point where he is almost unable to bear weight. The patient was hospitalized about a week ago with the same problem and has been discharged to a fdc for rehabilitation and hopefully home later today. The patient reports he has lightning bolts in his left leg, he describes it as constant, sharp, stabbing and throbbing with any weightbearing, better with sitting or lying down. It has been awakening him from sleep occasionally, frequently as 2-3 times a night. The patient reports it does not affect his bowel or bladder control, but does affect his ability to walk. He is using a wheelchair to get around most of times. The patient has not had any previous treatments so far or any physical therapy. He did have some stretching and strengthening done while he was in the hospital, but no formal therapies, chiropractic or other treatments. The patient is taking Tylenol as well as Aleve, both of which do help the pain, but only very mildly. The patient did have an MRI scan of the lumbar spine showing bilateral spondylosis with grade 2 anterolisthesis and marked neural foraminal stenosis at L4-L5. The patient rates his disability from 0-10, 10 being the worst, is at 10 with family and home responsibilities, recreation, social activity, occupation and sexual behavior, 6 with self-care and 4 with life support activities. PAST MEDICAL HISTORY: Significant for hypertension, hyperlipidemia, tachycardia, obesity, UTIs. PREVIOUS SURGERY: No previous surgeries. CURRENT MEDICATIONS: Include Norflex, Zofran, Mycostatin, metoprolol, cyclobenzaprine, Protonix, MiraLax, Tylenol, Colace, Mylanta, clonidine. ALLERGIES: The patient has no known drug allergies. FAMILY HISTORY: Significant for no major medical problems or conditions that he lists. SOCIAL HISTORY: The patient drinks about 2 glasses of wine a day on average. Does not smoke. Denies any illegal, illicit or recreational drugs. He is , lives with his spouse, lives locally in [place], [place]. Reports he is currently retired. REVIEW OF SYSTEMS: The patient's review of systems is positive for those items mentioned in history of present illness. All systems reviewed and otherwise negative. It is complete, full and well documented on the patient's chart. PHYSICAL EXAMINATION: VITAL SIGNS: The patient's blood pressure is 136/80, pulse is 105, respirations 16, temperature 97.6 degrees fahrenheit, height 5 feet 11 inches, weight is 312 pounds. GENERAL: The patient is awake, alert, oriented, appropriate, very pleasant demeanor. HEENT: Head shows normocephalic, atraumatic. Extraocular movements are intact and symmetrical. Oral cavity shows mucous membranes moist and pink. Dentition is intact. NECK: Shows anterior throat supple without palpable lymphadenopathy noted. Swallow reflex symmetrical. CHEST: Shows normal on inspection. Breath sounds are clear to auscultation bilaterally. HEART: Shows S1, S2 clear. No murmurs auscultated. ABDOMEN: Obese, soft, nontender, nondistended. No palpable organomegaly is noted. No rebound or guarding demonstrated. BACK: Shows spine grossly in the midline. Slight exaggeration of thoracic kyphosis and minor flattening of lumbar lordotic curvature. Lumbar paraspinous muscle shows symmetrical on inspection, with palpation shows some moderate tenderness diffusely in the low lumbar distribution only. The patient does show good rotational motion of lumbar spine, however, both laterally greater than 10 degrees right and left as well as extension greater than 10 degrees, forward flexion 45 degrees without significant pain reported. No tenderness over the spinous processes, sacrum or sacroiliac regions. EXTREMITIES: The patient's lower extremities show deep tendon reflexes 1+ in the patellar and tendo-calcaneus tendons are equal. Motor exam is approximately 4 on a scale of 5, but equal and symmetrical with dorsiflexion, extension, quadriceps and hamstring flexion. Peripheral pulses are 1+ posterior tibia. No peripheral edema is noted. Lower extremities are warm and dry to touch, equal in color and appearance. The patient has difficulty trying to stand from a seated position and requires significant help to rise from a seated to a standing position with very difficult ability to put weight on either of the lower extremities. The patient is unable to walk without assistance and is having very significant difficult time moving his left lower extremity, even to move a few feet from one chair to another. SKIN: Shows warm and dry, good turgor. No edema. No sores, rashes or bruising throughout. IMPRESSION: 1. This is a 69-year-old male with a long history of low back and left lower extremity pain, worse over the past year or so significantly worst over the past week in a radicular fashion on the left. 2. MRI scan of lumbar spine as noted. 3. Hypertension. 4. Obesity. 5. Arthritis. PLAN: Options were discussed with the patient including conservative medical managements, physical therapies and interventional techniques. He would like to pursue interventional techniques. We discussed a lumbar epidural steroid injection using description as well as anatomical models to describe the procedure. Risks were then discussed including, but not limited to bleeding, infection, possibility of epidural hematoma, subsequent neurological compromise, dural puncture, headaches, spinal cord and/or nerve damage, side effects of steroid medication and poor results regarding pain control. The patient understands and wished to proceed. The patient will return to clinic in approximately 2 weeks for followup. He was counseled as to return appointment, activity level and side effects to be aware of. DIAGNOSES: Lumbar radiculopathy with lumbar degenerative disk disease, lumbar spinal stenosis. PROCEDURE: Lumbar epidural steroid injection, translaminar approach at the L4-L5 level using C-arm fluoroscopic guidance under sterile prep and drape using local anesthetic. MEDICATION INJECTED: A total of 120 mg Depo-Medrol plus 10 mL of preservative-free normal saline and 2 mL of contrast. CONDITION AT DISCHARGE: Stable. The patient tolerated procedure well, had no complications. DOMINGUEZ ORELLANA MD DR: BUD/kane JOB#: [id number] / [id number]
== END | disposition home or self-care (01) ==
LOC: PNCL 10:34
PROVIDERS: ATTEND Anesthesiology
DX: M51.16 Intervertebral disc disorders with radiculopathy, lumbar region (principal); I10 Essential (primary) hypertension; M19.90 Unspecified osteoarthritis, unspecified site; E66.9 Obesity, unspecified; M48.061 Spinal stenosis, lumbar region without neurogenic claudication; E78.5 Hyperlipidemia, unspecified; Z87.440 Personal history of urinary (tract) infections; Z98.890 Other specified postprocedural states; Z79.899 Other long term (current) drug therapy; Z68.41 Body mass index [BMI] 40.0-44.9, adult
CPT/HCPCS: 62323; J1030; J1040; Q9965